=== PATIENT | male | born 1945 | race Caucasian/White ===

== ENCOUNTER 2020-03-25 10:25 | Inpatient (IN) | payer OTHER, SELFPAY ==
[2020-03-25] VITALS (9 sets, daily range): BP systolic 113–130; BP diastolic 37–82; PULSE 68–76; RESP 16–20; TEMP 36.7–37.1; O2SAT 94–100; BMI 27.3
--- NOTE | ~2020-03-25 | XR_ITS ---
EXAMINATION: XR chest 2V DATE: 03/28/2020 16:57 INDICATION: Shortness of breath. TECHNIQUE: Frontal and lateral views of the chest were obtained on 3 radiographs. COMPARISON: Chest single view at 03/25/2020, chest CT 11/24/2018 FINDINGS: There is volume loss in right hemithorax, likely from right upper lobectomy. 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 There is mild atelectasis in the lower lung zones. No pleural effusion or pneumothorax. The h eart size is normal. There is a right internal jugular port with tip in superior vena cava. There is a stent graft in abdominal aorta. IMPRESSION: 1. Mild atelectasis in the lower lung zones. Reviewed, dictated and finalized at location A.
--- NOTE | ~2020-03-25 | XR_ITS ---
XR chest 1V portable 03/25/2020 10:59 Indication: Cough and shortness of breath Procedure: AP portable chest Comparison: 11/24/2018 Findings: Patchy airspace disease right mid and lower lung. Portacatheter tip in the SVC. There is vo lume loss in the right lung with elevated right diaphragm. There are postsurgical changes at the righ t hilum, suggesting partial pneumonectomy. Impression: 1: Patchy right-sided airspace disease predominantly affecting the lower lobe. There is associated vo lume loss and elevation of the right diaphragm are differential diagnosis includes pneumonia, atelect asis and/or scarring. Reviewed, dictated and finalized at location A. Impression: 1: Patchy right-sided airspace disease predominantly affecting the lower lobe. There is associated volume loss and elevation of the right diaphragm are differ ential diagnosis includes pneumonia, atelectasis and/or scarring.
--- NOTE | 2020-03-25 10:26 | ECG_ITS ---
Measurements Intervals [place] Rate: 72 P: 38 NC: 193 QRS: 24 QRSD: 94 T: 62 QT: 423 QTc: 464 Interpretive Statements SINUS RHYTHM BORDERLINE ST ABNORMALITY- ANTEROLATERAL LEADS BORDERLINE ECG Electronically Signed On 03-25-2020 11:09:41 CDT by Calvin Lewis D.O.
--- NOTE | 2020-03-25 10:38 | ED.GENADULT ---
HPI - General Adult General Chief complaint: Shortness of Breath/Dyspnea Stated complaint: prod cough, sob Source: RN notes reviewed History of Present Illness HPI narrative: Patient presents emergency department from home for cough. Patient states he has had symptoms for approximately 5 days. Cough is productive of white sputum. States he has associated mild shortness of breath as well as fevers at home up to 101. Patient states he did have abdominal pain 3 days ago but that has resolved he denies any chest pain vomiting diarrhea or any other symptoms. Patient states he does have a history of previous lung cancer and gets weekly injections for his white blood cell count Related Data Home Medications Medication Instructions Recorded Confirmed albuterol sulfate 2 puff INHALATION QID 03/25/20 aspirin [Adult Low Dose Aspirin] 81 mg PO DAILY 03/25/20 carvedilol 12.5 mg PO BID 03/25/20 cholecalciferol (vitamin D3) 50 mcg PO DAILY 03/25/20 clopidogrel 75 mg PO DAILY 03/25/20 docusate sodium 100 mg PO BID 03/25/20 famotidine 20 mg PO DAILY 03/25/20 morphine 15 mg PO Q6H PRN 03/25/20 naloxone 1 spray INTRANASAL Q2-3M PRN 03/25/20 nitroglycerin 0.4 mg SUBLINGUAL Q5M PRN 03/25/20 potassium chloride 20 meq PO BID 03/25/20 silver sulfadiazine 1 applic TOPICAL DAILY 03/25/20 tamsulosin 0.4 mg PO HS 03/25/20 tbo-filgrastim mcg SUBCUT 03/25/20 tbo-filgrastim [Granix] mcg SUBCUT DAILY 03/25/20 Allergies Allergy/AdvReac Type Severity Reaction Status Date / Time gabapentin AdvReac Joint Pain Verified 03/25/20 10:37 pregabalin [From Lyrica] AdvReac Joint Pain Verified 03/25/20 10:37 ticagrelor [From Brilinta] AdvReac Muscle Pain Verified 03/25/20 10:38 Review of Systems Review of Systems: Narrative: Gen.: Reports fever Eyes: Denies eye pain or visual change ENT: Denies congestion Respiratory: See HPI CV: Denies chest pain or palpitations GI: Denies abdominal pain nausea, emesis or diarrhea Musculoskeletal: Denies back pain or muscle pain Neuro: Denies numbness, tingling, weakness or focal weakness Skin: Denies rash Except as documented, all other systems reviewed and negative [facility] Past Medical History Medical History (Updated 03/25/20 @ 13:58 by Mina Demarco DO) Lung cancer Social History Social History (Updated 03/25/20 @ 13:57 by Mina Demarco DO) Smoking status: Former smoker Gender identity (if verbalized by the patient): Male Exam Narrative: Exam Narrative: APPEARANCE: No acute distress, nontoxic, resting in bed EYES: EOMI HEENT: Normocephalic, atraumatic, oromucosa dry RESPIRATORY: No respiratory distress Clear to auscultation bilaterally with no rhonchi wheezing or rales. CARDIOVASCULAR: Regular rate and rhythm with grade 3 out of 6 systolic ejection murmur ABDOMINAL: Soft, nontender, nondistended, no rebound or guarding MUSCULOSKELETAl: Moves all extremities. No clubbing, cyanosis or edema. NEURO: Awake and alert. Following commands, speech normal, no focal deficits SKIN:: Warm, dry. No rashes lesions or abrasions PSYCHIATRIC: Normal affect/mood, Course Course Emergency Course: Discussed with Dr. Trevino presentation work-up. Agrees with admission at this time Discussed with patient and family results of workup and diagnosis. Discussed need for admission. Patient and family understand and agree to current treatment plan Vital Signs Vital signs: Vital Signs Temperature 98.0 F 03/25/20 10:25 Pulse Rate 74 03/25/20 10:25 Respiratory Rate 20 03/25/20 10:25 Blood Pressure 121/82 03/25/20 10:25 Pulse Oximetry 96 03/25/20 10:25 Temperature 98.0 F 03/25/20 10:25 Pulse Rate 69 03/25/20 13:18 Respiratory Rate 16 03/25/20 13:18 Blood Pressure 130/53 L 03/25/20 13:18 Pulse Oximetry 94 03/25/20 13:18 Medical Decision Making Vital Signs Vital Signs: Vital Signs Temperature 98.0 F 03/25/20 10:25 Pulse Rate 74 03/25/20 10:25 Respirator
[2020-03-25 10:59] LABS: Basophils Percent Auto 0.1 % (0.2-1.2); Eosinophils Percent Auto 0.1 % (0-4.4); Hematocrit 28.3 % (42.0-52.0); Hemoglobin 9.3 g/dL (14.0-18.0); Immature Granulocyte Absolute 0.88 K/mm3 (0.00-0.031); Immature Granulocyte Percent A 6.2 % (0-0.5); Lymphocytes Absolute Auto 1.02 K/mm3 (0.9-3.2); Lymphocytes Percent Auto 7.2 % (18.3-44.2); Mean Corpuscular HGB Conc 32.9 g/dl (32-36); Mean Corpuscular Hemoglobin 29.4 pg (26-34); Mean Corpuscular Volume 89.6 fl (80-100); Mean Platelet Volume 9.3 fl (7.4-10.4); Monocytes Absolute Auto 1.4 K/mm3 (0.1-0.6); Monocytes Percent Auto 9.7 % (2.6-8.5); Neutrophils Absolute Auto 10.9 K/mm3 (1.3-6.7); Neutrophils Percent Auto 76.7 % (45.5-73.1); Platelet Count Result 210 k/mm3 (150-375); Red Blood Count 3.16 M/mm3 (4.6-6.20); Red Cell Distribution Width 18.5 % (11.5-14.5); White Blood Count 14.2 K/mm3 (4.5-10.0)
[2020-03-25 11:08] LABS: Prothrombin Time 13.3 Seconds (11.1-14.7)
[2020-03-25 11:12] LABS: Lactic Acid Reflex 1.7 mmol/L (0.7-2.1)
[2020-03-25 11:14] LABS: Alanine Aminotransferase 43 U/L (4-50); Albumin Level 3.7 g/dL (3.5-5.1); Alkaline Phosphatase 150 U/L (38-126); Aspartate Amino Transferase 23 U/L (17-59); Bilirubin,Total 0.7 mg/dL (0.2-1.3); Blood Urea Nitrogen 11 mg/dL (9-20); Calcium 8.9 mg/dL (8.4-10.2); Carbon Dioxide 28 mmol/L (22-30); Chloride 95 mmol/L (98-107); Estimated CRCL calculation 68 ml/min; Estimated Glomerular Filt Rate > 60; Glucose 135 mg/dL (75-110); Potassium 2.8 mmol/L (3.4-5.0); Sodium 131 mmol/L (137-145)
[2020-03-25] MEDS: POTASSIUM CHLORIDE 20 MEQ TABLET 40 MEQ PO (11:34)
[2020-03-25 11:40] LABS: Magnesium 1.9 mg/dL (1.6-2.3)
--- NOTE | 2020-03-25 13:18 | PC.NURSE ---
pt refuses straight cath for ua. only voided few drops
--- NOTE | 2020-03-25 14:09 | ADMGEN ---
This patient, Tray Cespedes, was admitted to [facility] S[facility] Room 331-01. Patient/family oriented to hospital policies and general routines including ID bracelet, bed and alarms, visiting hours, pain management, procedures, bathroom and other care routines, personal items, smoking policy, room service/diet, and visiting hours. Valuables list has been completed. Information on how to activate the Rapid Response Team has been discussed. Patient/Family are encouraged to report perceived risks to care and to ask questions if they do not understand what they are told or what they should do.
--- NOTE | 2020-03-25 19:48 | PM.IMHP ---
H&P: HPI History of Present Illness Chief complaint: Community acquired pneumonia/hypokalemia Narrative: This is a 75 year old male with known history of lung cancer on chemotherapy who presented to the hospital with symptoms of a productive cough, fever, shortness of breath and diarrhea over the past 5 days. The patient believes his symptoms started Wednesday night and he attributes it to eating some bad food. Since then he has also been feeling fatigued and sick. He denies any abdominal pain, dysuria, hematuria, diarrhea, nausea, vomiting, chest pain, headache, lower extremity swelling, redness or pain. The patient has not required any supplemental oxygen and is nontoxic appearing. He was recently checked for COVID-19 three weeks ago and tested negative. The patient was found to have patchy right-sided airspace disease predominantly affecting the lower lobe on CXR. Routine labs demonstrated leukocytosis and hypokalemia. The patient was started on IV antibiotics and was tested again for COVID-19 virus. No other complaints. Review of Systems Review of Systems: All systems reviewed & are unremarkable except as noted in HPI and below PMFSH Past Medical History Medical History (Updated 03/27/20 @ 03:55 by Yordy Little MD) CAD (coronary artery disease) Lung cancer Myocardial infarction Surgical History Surgical History (Updated 03/25/20 @ 20:03 by Yordy Little MD) History of coronary artery stent placement Social History Social History Smoking status: Former smoker Alcohol intake: current Drinks per week: 7 Substance use: never Gender identity (if verbalized by the patient): Male Spiritual care concerns: No Meds Home Medications and Allergies Home Medications Medication Instructions Recorded Confirmed Type albuterol sulfate 2 puff INHALATION QID 03/25/20 03/25/20 History aspirin [Adult Low Dose Aspirin] 81 mg PO DAILY 03/25/20 03/25/20 History carvedilol 12.5 mg PO BID 03/25/20 03/25/20 History cholecalciferol (vitamin D3) 50 mcg PO DAILY 03/25/20 03/25/20 History clopidogrel 75 mg PO DAILY 03/25/20 03/25/20 History docusate sodium 100 mg PO BID 03/25/20 03/25/20 History famotidine 20 mg PO DAILY 03/25/20 03/25/20 History morphine 15 mg PO Q6H PRN 03/25/20 03/25/20 History naloxone 1 spray INTRANASAL Q2-3M PRN 03/25/20 03/25/20 History nitroglycerin 0.4 mg SUBLINGUAL Q5M PRN 03/25/20 03/25/20 History potassium chloride 20 meq PO BID 03/25/20 03/25/20 History silver sulfadiazine 1 applic TOPICAL DAILY 03/25/20 03/25/20 History tamsulosin 0.4 mg PO HS 03/25/20 03/25/20 History tbo-filgrastim 480 mcg SUBCUT DAILY 03/25/20 03/25/20 History Allergies Allergy/AdvReac Type Severity Reaction Status Date / Time gabapentin AdvReac Joint Pain Verified 03/25/20 10:37 pregabalin [From Lyrica] AdvReac Joint Pain Verified 03/25/20 10:37 ticagrelor [From Brilinta] AdvReac Muscle Pain Verified 03/25/20 10:38 Vital Signs Vital Signs - 24 hr 03/25/20 10:25 03/25/20 10:33 03/25/20 13:18 Temperature 36.7 C Pulse Rate 74 69 Respiratory Rate 20 16 Blood Pressure 121/82 130/53 L Pulse Oximetry 96 96 94 03/25/20 14:01 03/25/20 16:00 Temperature Pulse Rate 68 70 Respiratory Rate 20 Blood Pressure 122/53 L Pulse Oximetry 96 Exam Const: General: cooperative, no acute distress, alert and awake Nutritional Appearance: well nourished Orientation/consciousness: patient oriented x3 HENMT: Head: normal to inspection General nose exam: Normal external nose present Face and sinus: normal facial exam Mouth: Yes Normal oral and palatal mucosa present and Yes oropharynx normal Eyes: Pupils: Equal, round and reactive pupils present EOM: EOMs intact bilaterally Neck: Neck: supple and no JVD Thyroid: thyroid normal Lymphatic: lymphadenopathy not noted Resp: Effort & Inspection: normal respiratory effort Auscultation: clear to aus
[2020-03-25 20:43] LABS: Blood Urea Nitrogen 9 mg/dL (9-20); Calcium 8.4 mg/dL (8.4-10.2); Carbon Dioxide 28 mmol/L (22-30); Chloride 96 mmol/L (98-107); Estimated CRCL calculation 62 ml/min; Estimated Glomerular Filt Rate > 60; Glucose 99 mg/dL (75-110); Potassium 3.1 mmol/L (3.4-5.0); Sodium 130 mmol/L (137-145)
[2020-03-25] MEDS: MORPHINE SULFATE 15 MG TABCR PO (21:10)
[2020-03-25] MEDS: TAMSULOSIN HCL 0.4 MG CAPSULE PO (21:10)
[2020-03-25] MEDS: ALBUTEROL SULFATE (*SP) AEROSOL 1 PUFF 2 PUFF INHALATION (21:33)
[2020-03-26] VITALS (14 sets, daily range): BP systolic 105–118; BP diastolic 42–55; PULSE 68–82; RESP 18–20; TEMP 36.3–36.9; O2SAT 93–98; BMI 27.3
[2020-03-26] MEDS: MORPHINE SULFATE 15 MG TABCR PO ×4 (04:24→21:39)
[2020-03-26 06:32] LABS: Basophils Absolute Auto 0.1 K/mm3 (0.0-0.1); Basophils Percent Auto 0.3 % (0.2-1.2); Eosinophils Percent Auto 0.2 % (0-4.4); Hematocrit 26.8 % (42.0-52.0); Hemoglobin 8.7 g/dL (14.0-18.0); Immature Granulocyte Absolute 0.81 K/mm3 (0.00-0.031); Immature Granulocyte Percent A 4.6 % (0-0.5); Lymphocytes Absolute Auto 1.13 K/mm3 (0.9-3.2); Lymphocytes Percent Auto 6.5 % (18.3-44.2); Mean Corpuscular HGB Conc 32.5 g/dl (32-36); Mean Corpuscular Hemoglobin 29.2 pg (26-34); Mean Corpuscular Volume 89.9 fl (80-100); Mean Platelet Volume 8.7 fl (7.4-10.4); Monocytes Absolute Auto 1.1 K/mm3 (0.1-0.6); Monocytes Percent Auto 6.4 % (2.6-8.5); Neutrophils Absolute Auto 14.3 K/mm3 (1.3-6.7); Platelet Count Result 197 k/mm3 (150-375); Red Blood Count 2.98 M/mm3 (4.6-6.20); Red Cell Distribution Width 18.8 % (11.5-14.5); White Blood Count 17.4 K/mm3 (4.5-10.0)
[2020-03-26 06:45] LABS: Blood Urea Nitrogen 8 mg/dL (9-20); Calcium 8.7 mg/dL (8.4-10.2); Carbon Dioxide 27 mmol/L (22-30); Chloride 97 mmol/L (98-107); Estimated CRCL calculation 68 ml/min; Estimated Glomerular Filt Rate > 60; Glucose 162 mg/dL (75-110); Potassium 3.1 mmol/L (3.4-5.0); Sodium 132 mmol/L (137-145)
[2020-03-26] MEDS: FAMOTIDINE 20 MG TABLET PO (08:54)
[2020-03-26] MEDS: ALBUTEROL SULFATE (*SP) AEROSOL 1 PUFF 2 PUFF INHALATION ×4 (08:54→19:37)
[2020-03-26] MEDS: ASPIRIN 81 MG ENTERIC TABLET PO (08:54)
[2020-03-26] MEDS: DOCUSATE SODIUM 100 MG CAPSULE PO ×2 (08:54→21:38)
[2020-03-26] MEDS: POTASSIUM CHLORIDE 20 MEQ TABLET 40 MEQ PO (08:54)
[2020-03-26] MEDS: CLOPIDOGREL BISULFATE 75 MG TABLET PO (08:54)
[2020-03-26] MEDS: carvediloL 25 MG TABLET 12.5 MG PO ×2 (08:55→21:39)
[2020-03-26] MEDS: CHOLECALCIFEROL 1,000 UNIT TABLET 2000 UNITS PO (08:55)
[2020-03-26] MEDS: SILVER SULFADIAZINE 1% CR 400 GM JAR (*BKC) 1 APPLIC TOPICAL (08:56)
[2020-03-26 09:59] LABS: Add Urine Microscopic? NO; Appearance Urine Clear (Clear); Bilirubin Urine Negative (Negative); Blood Urine Negative (Negative); Color Urine Yellow (Yellow); Glucose Urine UA Negative (Negative); Ketones Urine Negative (Negative); Leukocyte Esterase Ur Negative LEU/UL (Negative); Nitrate Urine Negative (Negative); Protein Urine Negative (Negative); Specific Grav Ur 1.011 (1.001-1.035); Urobilinogen Urine Negative mg/dL (<2.0)
--- NOTE | 2020-03-26 10:38 | PM.IMPN ---
Progress Note: A&P Assessment and Plan (1) Community acquired pneumonia: Qualifiers: Laterality: left Lung location: lower lobe of lung Qualified Code(s): J18.9 - Pneumonia, unspecified organism Code(s): J18.9 - Pneumonia, unspecified organism Status: Acute Assessment and Plan: Patient presented with shortness of breath, dry cough, and fever. CXR demonstrates patchy right-sided airspace disease predominantly affecting the lower lobe with associated volume loss and elevation of right diaphragm. Patient has been afebrile since presentation. WBC elevated at 17.4. He is maintaining adequate oxygenation on room air. Continue azithromycin and ceftriaxone Pneumococcal and legionella urine antigen has been ordered Blood culture and sputum cultures are pending Continue analgesics and antipyretics Begin guaifenesin to mobilize secretions Begin albuterol inhaler as needed Supplemental oxygen as needed to maintain oxygen saturation 92% above (2) Suspected COVID-19 virus infection: Code(s): Z20.828 - Contact with and (suspected) exposure to other viral communicable diseases Status: Acute Assessment and Plan: Given clinical picture, patient was swabbed for COVID-19. He denies sick contacts or recent travel. He tested negative for COVID-19 approximately 3 weeks ago. Continue isolation precautions Await results of COVID-19 test Continue supportive care as above (3) Acute hypokalemia: Code(s): E87.6 - Hypokalemia Status: Acute Assessment and Plan: Potassium was low at presentation and was repleted. Likely secondary to diarrhea. Today, potassium was low at 3.1. Replace potassium Continue to monitor closely (4) Lung cancer: Qualifiers: Laterality: right Lung location: unspecified part of lung Qualified Code(s): C34.91 - Malignant neoplasm of unspecified part of right bronchus or lung Code(s): C34.90 - Malignant neoplasm of unspecified part of unspecified bronchus or lung Status: Acute Assessment and Plan: Patient has known lung cancer of the right lung and is s/p partial right upper and lower lobe removal and is now maintained on chemotherapy which he receives the [facility] in [place]. He is scheduled for next chemotherapy appointment on 04/02/2020 (5) Anemia: Qualifiers: Anemia type: unspecified type Qualified Code(s): D64.9 - Anemia, unspecified Code(s): D64.9 - Anemia, unspecified Status: Acute Assessment and Plan: Patient demonstrating normocytic anemia. No prior labs for review of baseline. Today, hemoglobin is 8.7 and hematocrit is 26.8. He denies bleeding. Vitals are stable. Obtain iron, B12, and folate panel Continue to monitor H&H (6) CAD (coronary artery disease): Qualifiers: Associated angina: without angina Coronary Disease-Associated Artery/Lesion type: unspecified vessel or lesion type [place] vs. transplanted heart: [place] heart Qualified Code(s): I25.10 - Atherosclerotic heart disease of [place] coronary artery without angina pectoris Code(s): I25.10 - Atherosclerotic heart disease of [place] coronary artery without angina pectoris Status: Acute Assessment and Plan: Stable at this time. Continue aspirin, Plavix, and Coreg Subjective Date/time seen: 03/26/20 10:38 Interval history: Date of service: 03/26/2020 He reports he is feeling about the same today. His biggest concern at this time is his cough. He reports a dry cough but feels that he has sputum to cough up which he cannot. He feels his shortness of breath has been stable, possibly improved. He has not been ambulating but is able to breathe well at rest and when lying supine. He feels fatigued. He denies subjective fevers or chills. He denies headache. He endorse previous episodes of nausea and vomiting but denies today. He is urinating regularly withou
[2020-03-26 14:41] LABS: SARS-CoV-2 RNA PCR Negative
[2020-03-26 14:49] LABS: Potassium 3.4 mmol/L (3.4-5.0)
[2020-03-26] MEDS: SACCHAROMYCES BOULARDII 250 MG CAPSULE PO (16:30)
[2020-03-26] MEDS: TAMSULOSIN HCL 0.4 MG CAPSULE PO (21:38)
[2020-03-27] VITALS (16 sets, daily range): BP systolic 107–126; BP diastolic 42–58; PULSE 66–82; RESP 18–20; TEMP 36.4–36.9; O2SAT 94–98
[2020-03-27] MEDS: MORPHINE SULFATE 15 MG TABCR PO ×4 (02:59→22:18)
[2020-03-27 06:41] LABS: Basophils Absolute Auto 0.1 K/mm3 (0.0-0.1); Basophils Percent Auto 0.6 % (0.2-1.2); Eosinophils Percent Auto 0.5 % (0-4.4); Hematocrit 24.5 % (42.0-52.0); Hemoglobin 7.8 g/dL (14.0-18.0); Immature Granulocyte Absolute 0.47 K/mm3 (0.00-0.031); Lymphocytes Absolute Auto 1.17 K/mm3 (0.9-3.2); Lymphocytes Percent Auto 15.1 % (18.3-44.2); Mean Corpuscular HGB Conc 31.8 g/dl (32-36); Mean Corpuscular Hemoglobin 28.9 pg (26-34); Mean Corpuscular Volume 90.7 fl (80-100); Mean Platelet Volume 9.2 fl (7.4-10.4); Monocytes Absolute Auto 0.9 K/mm3 (0.1-0.6); Monocytes Percent Auto 11.3 % (2.6-8.5); Neutrophils Absolute Auto 5.2 K/mm3 (1.3-6.7); Neutrophils Percent Auto 66.5 % (45.5-73.1); Platelet Count Result 187 k/mm3 (150-375); Red Cell Distribution Width 18.9 % (11.5-14.5); White Blood Count 7.8 K/mm3 (4.5-10.0)
[2020-03-27 07:17] LABS: Iron 50 ug/dL (49-181)
[2020-03-27 07:30] LABS: Percent Iron Saturation 25 % (20-50)
[2020-03-27 07:32] LABS: Ovalocytes 1+ (NORMAL); Platelet Estimate Adequate (Adequate); Stomatocytes 1+ (NORMAL)
[2020-03-27 07:54] LABS: Folic Acid 7.3 ng/mL (2.76->20)
[2020-03-27 08:42] LABS: Alanine Aminotransferase 28 U/L (4-50); Albumin Level 2.9 g/dL (3.5-5.1); Alkaline Phosphatase 109 U/L (38-126); Aspartate Amino Transferase 18 U/L (17-59); Bilirubin,Total 0.3 mg/dL (0.2-1.3); Blood Urea Nitrogen 7 mg/dL (9-20); Carbon Dioxide 27 mmol/L (22-30); Chloride 99 mmol/L (98-107); Estimated CRCL calculation 68 ml/min; Estimated Glomerular Filt Rate > 60; Glucose 100 mg/dL (75-110); Potassium 3.3 mmol/L (3.4-5.0); Sodium 132 mmol/L (137-145)
[2020-03-27] MEDS: ALBUTEROL SULFATE (*SP) AEROSOL 1 PUFF 2 PUFF INHALATION (08:53)
[2020-03-27] MEDS: ASPIRIN 81 MG ENTERIC TABLET PO (08:59)
[2020-03-27] MEDS: CHOLECALCIFEROL 1,000 UNIT TABLET 2000 UNITS PO (08:59)
[2020-03-27] MEDS: carvediloL 25 MG TABLET 12.5 MG PO ×2 (08:59→20:19)
[2020-03-27] MEDS: FAMOTIDINE 20 MG TABLET PO (09:00)
[2020-03-27] MEDS: SACCHAROMYCES BOULARDII 250 MG CAPSULE PO ×2 (09:00→16:03)
[2020-03-27] MEDS: DOCUSATE SODIUM 100 MG CAPSULE PO ×2 (09:00→20:19)
[2020-03-27] MEDS: CLOPIDOGREL BISULFATE 75 MG TABLET PO (09:00)
[2020-03-27] MEDS: SILVER SULFADIAZINE 1% CR 400 GM JAR (*BKC) 1 APPLIC TOPICAL (09:01)
--- NOTE | 2020-03-27 09:50 | PM.IMPN ---
Progress Note: A&P Assessment and Plan (1) Community acquired pneumonia: Qualifiers: Laterality: left Lung location: lower lobe of lung Qualified Code(s): J18.9 - Pneumonia, unspecified organism Code(s): J18.9 - Pneumonia, unspecified organism Status: Acute Assessment and Plan: Patient presented with shortness of breath, dry cough, and fever. CXR demonstrates patchy right-sided airspace disease predominantly affecting the lower lobe with associated volume loss and elevation of right diaphragm. Patient has been afebrile since presentation. Leukocytosis has resolved. He is maintaining adequate oxygenation on room air. Continue azithromycin and ceftriaxone Begin gentle IV fluids as patient will not drink water and appears mildly dehydrated Pneumococcal and legionella urine antigen pending Preliminary blood cultures with NGTD and preliminary sputum culture has few WBC and many mixed bacterial royer Continue supportive care with analgesics, antipyretics, guaifenesin, and albuterol as needed. Will change to nebulized albuterol and will add PEP therapy with Cornet device to mobilize secretions. Supplemental oxygen as needed to maintain oxygen saturation 92% above (2) Acute hypokalemia: Code(s): E87.6 - Hypokalemia Status: Acute Assessment and Plan: Potassium was low at presentation and was repleted. Likely secondary to diarrhea. Today, potassium is 3.3 Replace potassium Continue to monitor closely (3) Lung cancer: Qualifiers: Laterality: right Lung location: unspecified part of lung Qualified Code(s): C34.91 - Malignant neoplasm of unspecified part of right bronchus or lung Code(s): C34.90 - Malignant neoplasm of unspecified part of unspecified bronchus or lung Status: Chronic Assessment and Plan: Patient has known lung cancer of the right lung and is s/p partial right upper and lower lobe removal and is now maintained on chemotherapy which he receives the [facility] in [place]. He is scheduled for next chemotherapy appointment on 04/02/2020 (4) Anemia: Qualifiers: Anemia type: unspecified type Qualified Code(s): D64.9 - Anemia, unspecified Code(s): D64.9 - Anemia, unspecified Status: Chronic Assessment and Plan: Patient demonstrating normocytic anemia. No prior labs for review of baseline. Today, hemoglobin is 7.8 and hematocrit is 24.5. He denies bleeding. Vitals are stable. Iron panel is consistent with anemia of chronic disease. B12 and folate wnl. Continue to monitor H&H and transfuse as needed (5) Gait instability: Code(s): R26.81 - Unsteadiness on feet Status: Acute Assessment and Plan: Patient reports recent mechanical fall approximately 1 week ago. He has recently started using a walker as he feels he has become more weak and unsteady, probably due to deconditioning. Continue fall precautions PT and OT have been ordered and recommendations are appreciated. (6) CAD (coronary artery disease): Qualifiers: Associated angina: without angina Coronary Disease-Associated Artery/Lesion type: unspecified vessel or lesion type [place] vs. transplanted heart: [place] heart Qualified Code(s): I25.10 - Atherosclerotic heart disease of [place] coronary artery without angina pectoris Code(s): I25.10 - Atherosclerotic heart disease of [place] coronary artery without angina pectoris Status: Chronic Assessment and Plan: Stable at this time. Continue aspirin, Plavix, and Coreg (7) COVID-19 ruled out by laboratory testing: Code(s): Z03.818 - Encounter for observation for suspected exposure to other biological agents ruled out Status: Acute Assessment and Plan: He denies sick contacts or recent travel. He tested negative for COVID-19 approximately 3 weeks ago. Given clinical picture, patient was swabbed for COVID-19 in ED. Catrina
[2020-03-27] MEDS: POTASSIUM CHLORIDE 20 MEQ TABLET 40 MEQ PO (11:15)
[2020-03-27] MEDS: SODIUM CHLORIDE 0.9% IV 1,000 ML 70 ML IV CONT (11:16)
[2020-03-27] MEDS: ALBUTEROL SULFATE NEB 2.5 MG/0.5 ML INH INHALATION ×2 (14:38→20:37)
--- NOTE | 2020-03-27 14:38 | PCOTNOTE ---
OT evaluation attempted. Patient having treatment done. Will attempt at later time.
[2020-03-27] MEDS: TAMSULOSIN HCL 0.4 MG CAPSULE PO (20:19)
[2020-03-28] VITALS (16 sets, daily range): BP systolic 110–129; BP diastolic 37–63; PULSE 62–84; RESP 18–20; TEMP 36.6–37.3; O2SAT 94–100
--- NOTE | 2020-03-28 00:15 | ECG_ITS ---
Measurements Intervals [place] Rate: 68 P: 13 MT: 170 QRS: 14 QRSD: 88 T: 48 QT: 418 QTc: 446 Interpretive Statements SINUS RHYTHM NORMAL ECG Electronically Signed On 03-28-2020 7:07:32 CDT by Calvin Lewis D.O.
[2020-03-28 01:53] LABS: Troponin I < 0.012 ng/mL (0.000-0.034)
[2020-03-28] MEDS: ALBUTEROL SULFATE NEB 2.5 MG/0.5 ML INH INHALATION ×4 (02:07→20:03)
[2020-03-28] MEDS: MORPHINE SULFATE 15 MG TABCR PO ×4 (04:09→21:33)
[2020-03-28 06:11] LABS: Basophils Percent Auto 0.7 % (0.2-1.2); Hematocrit 24.2 % (42.0-52.0); Hemoglobin 7.7 g/dL (14.0-18.0); Immature Granulocyte Absolute 0.27 K/mm3 (0.00-0.031); Immature Granulocyte Percent A 6.4 % (0-0.5); Lymphocytes Absolute Auto 0.97 K/mm3 (0.9-3.2); Lymphocytes Percent Auto 23.1 % (18.3-44.2); Mean Corpuscular HGB Conc 31.8 g/dl (32-36); Mean Corpuscular Hemoglobin 28.8 pg (26-34); Mean Corpuscular Volume 90.6 fl (80-100); Mean Platelet Volume 8.5 fl (7.4-10.4); Monocytes Absolute Auto 0.6 K/mm3 (0.1-0.6); Monocytes Percent Auto 13.8 % (2.6-8.5); Neutrophils Absolute Auto 2.3 K/mm3 (1.3-6.7); Platelet Count Result 164 k/mm3 (150-375); Red Blood Count 2.67 M/mm3 (4.6-6.20); Red Cell Distribution Width 18.6 % (11.5-14.5); White Blood Count 4.2 K/mm3 (4.5-10.0)
[2020-03-28 06:29] LABS: Alanine Aminotransferase 21 U/L (4-50); Alkaline Phosphatase 95 U/L (38-126); Aspartate Amino Transferase 16 U/L (17-59); Bilirubin,Total 0.4 mg/dL (0.2-1.3); Blood Urea Nitrogen 5 mg/dL (9-20); Calcium 8.3 mg/dL (8.4-10.2); Carbon Dioxide 29 mmol/L (22-30); Chloride 100 mmol/L (98-107); Estimated CRCL calculation 76 ml/min; Estimated Glomerular Filt Rate > 60; Glucose 104 mg/dL (75-110); Potassium 3.9 mmol/L (3.4-5.0); Sodium 136 mmol/L (137-145)
[2020-03-28 07:01] LABS: Ovalocytes 1+ (NORMAL); Platelet Estimate Adequate (Adequate); Stomatocytes 2+ (NORMAL)
[2020-03-28] MEDS: FAMOTIDINE 20 MG TABLET PO (08:27)
[2020-03-28] MEDS: CLOPIDOGREL BISULFATE 75 MG TABLET PO (08:27)
[2020-03-28] MEDS: ASPIRIN 81 MG ENTERIC TABLET PO (08:27)
[2020-03-28] MEDS: CHOLECALCIFEROL 1,000 UNIT TABLET 2000 UNITS PO (08:27)
[2020-03-28] MEDS: carvediloL 25 MG TABLET 12.5 MG PO ×2 (08:27→21:32)
[2020-03-28] MEDS: SACCHAROMYCES BOULARDII 250 MG CAPSULE PO ×2 (08:27→17:54)
--- NOTE | 2020-03-28 10:17 | PM.IMPN ---
Progress Note: A&P Assessment and Plan (1) Community acquired pneumonia: Qualifiers: Laterality: left Lung location: lower lobe of lung Qualified Code(s): J18.9 - Pneumonia, unspecified organism Code(s): J18.9 - Pneumonia, unspecified organism Status: Acute Assessment and Plan: Patient presented with shortness of breath, dry cough, and fever. CXR demonstrates patchy right-sided airspace disease predominantly affecting the lower lobe with associated volume loss and elevation of right diaphragm. Patient has been afebrile since presentation. Leukocytosis has resolved. He is maintaining adequate oxygenation on room air. He does feel more SOB today and has slightly labored breathing. Continue azithromycin and ceftriaxone Repeat CXR Pneumococcal and legionella urine antigen pending Preliminary blood cultures with NGTD and preliminary sputum culture has few WBC and many mixed bacterial royer Continue supportive care with analgesics, antipyretics, guaifenesin, albuterol, and Cornet device Supplemental oxygen as needed to maintain oxygen saturation 92% above (2) Pleuritic chest pain: Code(s): R07.81 - Pleurodynia Status: Acute Assessment and Plan: Patient complains of pleuritic chest pain which is reproducible with cough or chest wall palpation. He had a right lung lobectomy in October, and he reports he has had some lingering right chest wall pain since that time. He rates pain as 10/10 today, but reports he gets relief with his home morphine. He also noted improvement with lying on his right side and applying pressure to his chest. His discomfort increased overnight, therefore cardiac workup was pursued. Troponin was negative. EKG revealed normal sinus rhythm. Continue home pain control regimen of morphine 15 mg PO Q6H Supportive care with lidocaine patch, heat, or ice as needed. (3) Acute hypokalemia: Code(s): E87.6 - Hypokalemia Status: Acute Assessment and Plan: Potassium was low at presentation and was repleted. Likely secondary to diarrhea. Today, potassium is 3.9 Continue to monitor closely (4) Lung cancer: Qualifiers: Laterality: right Lung location: unspecified part of lung Qualified Code(s): C34.91 - Malignant neoplasm of unspecified part of right bronchus or lung Code(s): C34.90 - Malignant neoplasm of unspecified part of unspecified bronchus or lung Status: Chronic Assessment and Plan: Patient has known lung cancer of the right lung and is s/p partial right upper and lower lobe removal and is now maintained on chemotherapy which he receives at the [facility] in [place]. He is scheduled for next chemotherapy appointment on 04/02/2020 (5) Anemia: Qualifiers: Anemia type: unspecified type Qualified Code(s): D64.9 - Anemia, unspecified Code(s): D64.9 - Anemia, unspecified Status: Chronic Assessment and Plan: Patient demonstrating normocytic anemia. No prior labs for review of baseline. Today, hemoglobin is 7.8 and hematocrit is 24.5. He denies bleeding. Vitals are stable. Iron panel is consistent with anemia of chronic disease. B12 and folate wnl. Continue to monitor H&H and transfuse as needed (6) Gait instability: Code(s): R26.81 - Unsteadiness on feet Status: Acute Assessment and Plan: Patient reports recent mechanical fall approximately 1 week ago. He has recently started using a walker as he feels he has become more weak and unsteady, probably due to deconditioning. Continue fall precautions PT and OT have been ordered and recommendations are appreciated. (7) CAD (coronary artery disease): Qualifiers: Coronary Disease-Associated Artery/Lesion type: unspecified vessel or lesion type [place] vs. transplanted heart: [place] heart Associated angina: without angina Qualified Code(s): I25.10 - Atherosclerotic heart disease of
[2020-03-28] MEDS: LIDOCAINE 5% PATCH 1 PATCH TRANSDERM (12:13)
--- NOTE | 2020-03-28 15:25 | PCPTNOTE ---
The PT treatment was not completed today. Will continue per Plan of Care frequency and duration.
[2020-03-28] MEDS: TAMSULOSIN HCL 0.4 MG CAPSULE PO (21:33)
[2020-03-28] MEDS: DOCUSATE SODIUM 100 MG CAPSULE PO (21:33)
[2020-03-29] VITALS (14 sets, daily range): BP systolic 106–134; BP diastolic 41–76; PULSE 67–105; RESP 16–20; TEMP 36.6–37.1; O2SAT 95–100
[2020-03-29] MEDS: ALBUTEROL SULFATE NEB 2.5 MG/0.5 ML INH INHALATION ×4 (01:50→20:11)
[2020-03-29] MEDS: MORPHINE SULFATE 15 MG TABCR PO ×4 (04:11→22:01)
[2020-03-29 06:01] LABS: Eosinophils Percent Auto 0.8 % (0-4.4); Hematocrit 24.9 % (42.0-52.0); Hemoglobin 7.6 g/dL (14.0-18.0); Immature Granulocyte Absolute 0.15 K/mm3 (0.00-0.031); Immature Granulocyte Percent A 3.9 % (0-0.5); Lymphocytes Absolute Auto 1.03 K/mm3 (0.9-3.2); Lymphocytes Percent Auto 26.9 % (18.3-44.2); Mean Corpuscular HGB Conc 30.5 g/dl (32-36); Mean Corpuscular Hemoglobin 29.1 pg (26-34); Mean Corpuscular Volume 95.4 fl (80-100); Mean Platelet Volume 8.9 fl (7.4-10.4); Monocytes Absolute Auto 0.6 K/mm3 (0.1-0.6); Monocytes Percent Auto 15.4 % (2.6-8.5); Platelet Count Result 174 k/mm3 (150-375); Red Blood Count 2.61 M/mm3 (4.6-6.20); Red Cell Distribution Width 18.3 % (11.5-14.5); White Blood Count 3.8 K/mm3 (4.5-10.0)
[2020-03-29 06:04] LABS: Alanine Aminotransferase 18 U/L (4-50); Albumin Level 3.2 g/dL (3.5-5.1); Alkaline Phosphatase 92 U/L (38-126); Aspartate Amino Transferase 14 U/L (17-59); Bilirubin,Total 0.5 mg/dL (0.2-1.3); Blood Urea Nitrogen 5 mg/dL (9-20); Calcium 8.5 mg/dL (8.4-10.2); Carbon Dioxide 28 mmol/L (22-30); Chloride 100 mmol/L (98-107); Estimated CRCL calculation 76 ml/min; Estimated Glomerular Filt Rate > 60; Glucose 108 mg/dL (75-110); Potassium 3.9 mmol/L (3.4-5.0); Sodium 133 mmol/L (137-145)
[2020-03-29] MEDS: SACCHAROMYCES BOULARDII 250 MG CAPSULE PO ×2 (08:24→16:19)
[2020-03-29] MEDS: DOCUSATE SODIUM 100 MG CAPSULE PO ×2 (08:24→20:36)
[2020-03-29] MEDS: FAMOTIDINE 20 MG TABLET PO (08:25)
[2020-03-29] MEDS: CLOPIDOGREL BISULFATE 75 MG TABLET PO (08:25)
[2020-03-29] MEDS: carvediloL 25 MG TABLET 12.5 MG PO ×2 (08:25→20:36)
[2020-03-29] MEDS: ASPIRIN 81 MG ENTERIC TABLET PO (08:26)
[2020-03-29] MEDS: LIDOCAINE 5% PATCH 1 PATCH TRANSDERM (08:29)
[2020-03-29] MEDS: CHOLECALCIFEROL 1,000 UNIT TABLET 2000 UNITS PO (08:31)
--- NOTE | 2020-03-29 09:15 | PM.IMPN ---
Progress Note: A&P Assessment and Plan (1) Community acquired pneumonia: Qualifiers: Laterality: left Lung location: lower lobe of lung Qualified Code(s): J18.9 - Pneumonia, unspecified organism Code(s): J18.9 - Pneumonia, unspecified organism Status: Acute Assessment and Plan: CXR demonstrates patchy right-sided airspace disease predominantly affecting the lower lobe with associated volume loss and elevation of right diaphragm. Patient has been afebrile since presentation. Leukocytosis has resolved. He is maintaining adequate oxygenation on room air. Repeat CXR yesterday revealed mild atelectasis. Continue azithromycin and ceftriaxone. Initiated on 03/26/20 Pneumococcal and legionella urine antigen pending Preliminary blood cultures with NGTD and final sputum culture normal oropharyngeal oryer. Continue supportive care with analgesics, antipyretics, guaifenesin, albuterol, and Cornet device Supplemental oxygen as needed to maintain oxygen saturation 92% above Begin incentive spirometer (2) Pleuritic chest pain: Code(s): R07.81 - Pleurodynia Status: Acute Assessment and Plan: Patient complains of pleuritic chest pain which is reproducible with cough or chest wall palpation. He had a right lung lobectomy in October, and he reports he has had some lingering right chest wall pain since that time. His discomfort increased overnight on 03/27, therefore cardiac workup was pursued. Troponin was negative. EKG revealed normal sinus rhythm. He reports his pain has not been well controlled, however he does note improvement with morphine. Continue home pain control regimen of morphine 15 mg PO Q6H Maximize supportive therapy to achieve adequate pain control. Apply ice to area. Continue lidocaine patch. (3) Acute hypokalemia: Code(s): E87.6 - Hypokalemia Status: Acute Assessment and Plan: Potassium was low at presentation and was repleted. Likely secondary to diarrhea. Today, potassium is 3.9 Continue to monitor closely (4) Lung cancer: Qualifiers: Laterality: right Lung location: unspecified part of lung Qualified Code(s): C34.91 - Malignant neoplasm of unspecified part of right bronchus or lung Code(s): C34.90 - Malignant neoplasm of unspecified part of unspecified bronchus or lung Status: Chronic Assessment and Plan: Patient has known lung cancer of the right lung and is s/p partial right upper and lower lobe removal and is now maintained on chemotherapy which he receives at the [facility] in [place]. He is scheduled for next chemotherapy appointment on 04/02/2020 (5) Anemia: Qualifiers: Anemia type: unspecified type Qualified Code(s): D64.9 - Anemia, unspecified Code(s): D64.9 - Anemia, unspecified Status: Chronic Assessment and Plan: Patient has chronic, normocytic anemia. Today, hemoglobin is 7.6 and hematocrit is 24.9. He denies bleeding. Vitals are stable. Iron panel is consistent with anemia of chronic disease. B12 and folate wnl. Continue to monitor H&H and transfuse as needed (6) Gait instability: Code(s): R26.81 - Unsteadiness on feet Status: Acute Assessment and Plan: Patient reports recent mechanical fall approximately 1 week ago. He has recently started using a walker as he feels he has become more weak and unsteady, probably due to deconditioning. Continue fall precautions PT and OT have been ordered and recommendations are appreciated. (7) CAD (coronary artery disease): Qualifiers: Coronary Disease-Associated Artery/Lesion type: unspecified vessel or lesion type [place] vs. transplanted heart: [place] heart Associated angina: without angina Qualified Code(s): I25.10 - Atherosclerotic heart disease of [place] coronary artery without angina pectoris Code(s): I25.10 - Atherosclerotic heart disease of [place] coronary artery
--- NOTE | 2020-03-29 10:26 | PCOTNOTE ---
Attempted to see patient at this time, however patient declined.
--- NOTE | 2020-03-29 11:55 | PCNFU ---
Nutrition Follow-Up Complete: Inadequate oral intake R/T reduced appetite as evidence by unintended wt loss PO intake of 75% of meals and supplements to halt further wt loss Patient has met goal. No new goal. Pt current nutrition is Heart Healthy. Nutrition recommendation: Agree Last recorded weight is 91.7 kg. Bowel Motility:+BM 03/29 Labs Reviewed:BUN 5,Na 133,Alb 3.2 Meds Noted:Vit D, Coreg, Mucinex. Additional Notes: Spoke with patient today. He states to eating well:80-100% of intake noted. He does not like the diet supplement, that has been discontinued. He states, he would like a salt . We discussed the heart healthy diet today and why is on that diet. Patient Instruction attached. Monitoring: PO intake, wt, labs every five days
[2020-03-29 14:36] LABS: Pneumococcal Antigen Urine Not Detected (Not Detected)
[2020-03-29 18:19] LABS: Legionella pneumophila Ag Ur Not Detected (Not Detected)
[2020-03-29] MEDS: TAMSULOSIN HCL 0.4 MG CAPSULE PO (20:36)
[2020-03-30] VITALS (8 sets, daily range): BP systolic 109–117; BP diastolic 42–55; PULSE 68–76; RESP 16–18; TEMP 36.3–36.7; O2SAT 94–99
[2020-03-30] MEDS: ALBUTEROL SULFATE NEB 2.5 MG/0.5 ML INH INHALATION ×3 (02:10→13:25)
[2020-03-30] MEDS: MORPHINE SULFATE 15 MG TABCR PO ×2 (03:59→10:27)
[2020-03-30 07:44] LABS: Basophils Percent Auto 0.8 % (0.2-1.2); Eosinophils Percent Auto 0.5 % (0-4.4); Hematocrit 25.7 % (42.0-52.0); Hemoglobin 8.2 g/dL (14.0-18.0); Immature Granulocyte Absolute 0.11 K/mm3 (0.00-0.031); Lymphocytes Absolute Auto 1.01 K/mm3 (0.9-3.2); Lymphocytes Percent Auto 27.3 % (18.3-44.2); Mean Corpuscular HGB Conc 31.9 g/dl (32-36); Mean Corpuscular Hemoglobin 29.6 pg (26-34); Mean Corpuscular Volume 92.8 fl (80-100); Mean Platelet Volume 8.9 fl (7.4-10.4); Monocytes Absolute Auto 0.5 K/mm3 (0.1-0.6); Monocytes Percent Auto 13.5 % (2.6-8.5); Neutrophils Percent Auto 54.9 % (45.5-73.1); Platelet Count Result 192 k/mm3 (150-375); Red Blood Count 2.77 M/mm3 (4.6-6.20); Red Cell Distribution Width 17.9 % (11.5-14.5); White Blood Count 3.7 K/mm3 (4.5-10.0)
[2020-03-30 08:08] LABS: Alanine Aminotransferase 16 U/L (4-50); Albumin Level 3.4 g/dL (3.5-5.1); Alkaline Phosphatase 90 U/L (38-126); Aspartate Amino Transferase 14 U/L (17-59); Bilirubin,Total 0.6 mg/dL (0.2-1.3); Blood Urea Nitrogen 6 mg/dL (9-20); Carbon Dioxide 32 mmol/L (22-30); Chloride 99 mmol/L (98-107); Estimated CRCL calculation 68 ml/min; Estimated Glomerular Filt Rate > 60; Glucose 111 mg/dL (75-110); Potassium 4.6 mmol/L (3.4-5.0); Sodium 136 mmol/L (137-145)
[2020-03-30] MEDS: CLOPIDOGREL BISULFATE 75 MG TABLET PO (08:51)
[2020-03-30] MEDS: FAMOTIDINE 20 MG TABLET PO (08:52)
[2020-03-30] MEDS: SACCHAROMYCES BOULARDII 250 MG CAPSULE PO (08:52)
[2020-03-30] MEDS: CHOLECALCIFEROL 1,000 UNIT TABLET 2000 UNITS PO (08:52)
[2020-03-30] MEDS: carvediloL 25 MG TABLET 12.5 MG PO (08:52)
[2020-03-30] MEDS: ASPIRIN 81 MG ENTERIC TABLET PO (08:52)
[2020-03-30] MEDS: LIDOCAINE 5% PATCH 1 PATCH TRANSDERM (08:54)
--- NOTE | 2020-03-30 11:06 | PCOTNOTE ---
Attempted to see patient for skilled OT, however patient declined to participate in any functional ADL task, mobility, or exercises. Patient not seen for OT.
--- NOTE | 2020-03-30 12:45 | PM.DS ---
DS: Admitting Diagnosis Admitting Diagnosis Admitting Diagnosis: Pneumonia, unspecified organism DS: Discharge Diagnosis Discharge Diagnosis (1) Community acquired pneumonia: Qualifiers: Laterality: left Lung location: lower lobe of lung Qualified Code(s): J18.9 - Pneumonia, unspecified organism Code(s): J18.9 - Pneumonia, unspecified organism Status: Acute Assessment and Plan: Patient presented with productive cough, fever, and SOB. He remained afebrile during his stay. Leukocytosis resolved. He maintained adequate oxygenation on room air. He was treated with IV azithromycin for 5 days and IV Ceftriaxone. He will continue PO Cefdinir to complete a 7 day course. Preliminary blood cultures reveal NGTD and final cultures will be monitored. Final sputum culture demonstrated normal oropharyngeal royer. His cough improved. (2) Pleuritic chest pain: Code(s): R07.81 - Pleurodynia Status: Acute Assessment and Plan: Patient complained of pleuritic chest pain which was reproducible with cough or chest wall palpation. He had a right lung lobectomy in October, and he reports he has had some lingering right chest wall pain since that time. Given chest pain, cardiac workup was pursued with negative troponins and NSR EKG without ST changes. Pain improved with his home morphine regimen which he will continue. (3) Acute hypokalemia: Code(s): E87.6 - Hypokalemia Status: Acute Assessment and Plan: Potassium was low at presentation and was repleted. He will continue his home 20 mEq potassium chloride. (4) Lung cancer: Qualifiers: Laterality: right Lung location: unspecified part of lung Qualified Code(s): C34.91 - Malignant neoplasm of unspecified part of right bronchus or lung Code(s): C34.90 - Malignant neoplasm of unspecified part of unspecified bronchus or lung Status: Chronic Assessment and Plan: Patient has known lung cancer of the right lung and is s/p partial right upper and lower lobe removal and is now maintained on chemotherapy which he receives at the [facility] in [place]. He is scheduled for next chemotherapy appointment on 04/02/2020 (5) Anemia: Qualifiers: Anemia type: unspecified type Qualified Code(s): D64.9 - Anemia, unspecified Code(s): D64.9 - Anemia, unspecified Status: Chronic Assessment and Plan: Patient has chronic, normocytic anemia. Iron panel is consistent with anemia of chronic disease. B12 and folate wnl. H&H remained stable. (6) Gait instability: Code(s): R26.81 - Unsteadiness on feet Status: Acute Assessment and Plan: Patient reported recent mechanical fall approximately 1 week ago. He has recently started using a walker as he feels he has become more weak and unsteady, probably due to deconditioning. He was evaluated by PT and OT and felt to be safe to return home. Fall precautions were discussed at length. (7) CAD (coronary artery disease): Qualifiers: Associated angina: without angina Coronary Disease-Associated Artery/Lesion type: unspecified vessel or lesion type [place] vs. transplanted heart: [place] heart Qualified Code(s): I25.10 - Atherosclerotic heart disease of [place] coronary artery without angina pectoris Code(s): I25.10 - Atherosclerotic heart disease of [place] coronary artery without angina pectoris Status: Chronic Assessment and Plan: Remained stable. He will continue aspirin, Plavix, and Coreg (8) COVID-19 ruled out by laboratory testing: Code(s): Z03.818 - Encounter for observation for suspected exposure to other biological agents ruled out Status: Acute Assessment and Plan: He tested negative for COVID-19 approximately 3 weeks ago. Given clinical picture, a repeat test was performed at presentation. Informed of negative result on 03/26/20. DS: Summary Hospital Course Damari
--- NOTE | 2020-03-30 16:16 | PC.NURSE ---
Pt has been discharged from this hospital to home. Pt had IV removed, belongings checked, and discharge paperwork reviewed. Opportunity for questions was provided, and pt exhibited good understanding of discharge instructions. Pt was wheeled to the front door in a wheelchair, by staff.
== END 2020-03-30 16:05 | disposition home or self-care (01) | DRG 194 ==
LOC: ANHED 12:05 → ANH3MEDSUR 12:28
PROVIDERS: Family Medicine; Physician Assistant; Admitting Provider Hospitalist; Emergency Provider Emergency Medicine; Visit Provider Internal Medicine
DX: J18.9 Pneumonia, unspecified organism (principal); C34.91 Malignant neoplasm of unspecified part of right bronchus or lung; Z20.828 Contact with and (suspected) exposure to other viral communicable diseases; R07.81 Pleurodynia; E87.6 Hypokalemia; D63.8 Anemia in other chronic diseases classified elsewhere; I25.10 Atherosclerotic heart disease of native coronary artery without angina pectoris; I25.2 Old myocardial infarction; Z95.5 Presence of coronary angioplasty implant and graft; Z87.891 Personal history of nicotine dependence
CPT/HCPCS: 36415; 71045; 71046; 80048; 80053; 81003; 82607; 82728; 82746; 83540; 83550; 83605; 83735; 84132; 84484; 85025; 85610; 87040; 87070; 87205; 87449; 87635; 87899; 93005; 94640; 94667; 94668; 96365; 96366; 96367; 97110; 97161; 97165; 97530; 99285; A9270; C9803; G0378; J0456; J0696; J3480; J7030; U0003

== ENCOUNTER 2020-10-31 00:56 | Emergency (ER) | payer OTHER, SELFPAY ==
--- NOTE | ~2020-10-31 | XR_ITS ---
EXAMINATION: XR hip LT 2V w AP pelvis INDICATION: Left hip pain TECHNIQUE: AP view of the pelvis and three views of the left hip are obtained. COMPARISON: None available FINDINGS: There are changes of left total hip arthroplasty. There is a spiral fracture of the left fe mur surrounding the femoral component of the arthroplasty. No pelvic fracture is identified. 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 Calcified atherosclerosis is noted. An aortobiiliac stent graft i s seen. IMPRESSION: 1. Spiral fracture of the left femur surrounding femoral component of the hip arthroplasty. Reviewed, dictated and finalized at location [facility]. E SCHOOL TEACHER IMPRESSION: 1. Spiral fracture of the left femur surrounding femoral component of the hip a rthroplasty.
--- NOTE | ~2020-10-31 | XR_ITS ---
EXAMINATION: XR femur LT min 2V INDICATION: Left femur fracture, initial encounter TECHNIQUE: Two views of the left femur are obtained on three radiographs. COMPARISON: None available FINDINGS: There are changes of left total hip arthroplasty. There is a spiral fracture of the proxima l femur surrounding the femoral component of the arthroplasty. The distal fracture fragment is medial ly displaced by approximately 2.5 cm and posteriorly displaced approximately 2.8 cm. Calcified athero sclerosis is noted. Alignment at the knee appears to be maintained. No additional fracture is identif ied. IMPRESSION: 1. Spiral fracture of the proximal left femur surrounding the femoral component of the hip arthroplas ty. Reviewed, dictated and finalized at location [facility]. BOILER IMPRESSION: 1. Spiral fracture of the proximal left femur surrounding the femoral component of the hip arthroplasty.
[2020-10-31 00:58] VITALS: BP 103/67; PULSE 63; RESP 18; TEMP 36.6; O2SAT 97
--- NOTE | 2020-10-31 01:00 | ED.LOWEXIN ---
HPI - Extremity Injury (Lower) General Chief Complaint: Extremity Injury, Lower Stated Complaint: l hip pain History of Present Illness HPI Narrative: 75 yo male with multiple medical comorbidities presents to the ED for a hip injury. He was on a step stool changing a light bulb when he fell nto his left hip. He has severe pain and deformity to the hip. He has had 3 previous hip replacement surgeries on that side. The most recent was at [facility]. He also has a skin tear and swelling to the left elbow. Unsure it if hit his head. Related Data Home Medications Medication Instructions Recorded Confirmed albuterol sulfate 2 puff INHALATION QID 03/25/20 03/25/20 aspirin [Adult Low Dose Aspirin] 81 mg PO DAILY 03/25/20 03/25/20 carvedilol 12.5 mg PO BID 03/25/20 03/25/20 cholecalciferol (vitamin D3) 50 mcg PO DAILY 03/25/20 03/25/20 clopidogrel 75 mg PO DAILY 03/25/20 03/25/20 docusate sodium 100 mg PO BID 03/25/20 03/25/20 famotidine 20 mg PO DAILY 03/25/20 03/25/20 morphine 15 mg PO Q6H PRN 03/25/20 03/25/20 naloxone 1 spray INTRANASAL Q2-3M PRN 03/25/20 03/25/20 nitroglycerin 0.4 mg SUBLINGUAL Q5M PRN 03/25/20 03/25/20 potassium chloride 20 meq PO BID 03/25/20 03/25/20 silver sulfadiazine 1 applic TOPICAL DAILY 03/25/20 03/25/20 tamsulosin 0.4 mg PO HS 03/25/20 03/25/20 tbo-filgrastim 480 mcg SUBCUT DAILY 03/25/20 03/25/20 Allergies Allergy/AdvReac Type Severity Reaction Status Date / Time gabapentin AdvReac Joint Pain Verified 10/31/20 01:08 pregabalin [From Lyrica] AdvReac Joint Pain Verified 10/31/20 01:08 ticagrelor [From Brilinta] AdvReac Muscle Pain Verified 10/31/20 01:08 Review of Systems Review of Systems: All systems reviewed & are unremarkable except as noted in HPI and below Constitutional: Constitutional: Denies fever(s) Cardiovascular: Cardiovascular: Denies chest pain Respiratory: Respiratory: Denies dyspnea Gastrointestinal: Gastrointestinal: Denies nausea Musculoskeletal: Musculoskeletal: Reports back pain (Chronic) Neurologic: Denies confusion [facility] Past Medical History Medical History (Updated 10/31/20 @ 01:47 by Keith Gonzalez MD) Anemia CAD (coronary artery disease) Lung cancer Myocardial infarction Surgical History Surgical History (Updated 10/31/20 @ 01:43 by Keith Gonzalez MD) History of coronary artery stent placement History of hip replacement Social History Social History Smoking status: Former smoker Alcohol intake: current Drinks per week: 7 Substance use: never Gender identity (if verbalized by the patient): Male Spiritual care concerns: No Exam Const: General: no acute distress, alert and ill appearing Orientation/consciousness: patient oriented x3 HENMT: Head: normal to inspection Eyes: Pupils: Equal, round and reactive pupils present Resp: Effort & Inspection: normal respiratory effort Auscultation: clear to auscultation bilaterally Cardio: Rate: regular rate Rhythm: regular rhythm Other: 1+ right DP GI: GI Palp: Yes Soft to palpation and No Tenderness to palpation present (GI) Skin: General skin exam: pallor Neuro: General: patient oriented x3, moves all extremities and CN's II-XI intact bilaterally Speech: normal speech Extrem: Other: Left hip shortened and externally rotated. Course Vital Signs Vital signs: Vital Signs Temperature 36.6 C 10/31/20 00:58 Pulse Rate 63 10/31/20 00:58 Respiratory Rate 18 10/31/20 00:58 Blood Pressure 103/67 10/31/20 00:58 Pulse Oximetry 97 10/31/20 00:58 Temperature 36.6 C 10/31/20 00:58 Pulse Rate 63 10/31/20 00:58 Respiratory Rate 18 10/31/20 00:58 Blood Pressure 103/67 10/31/20 00:58 Pulse Oximetry 97 10/31/20 00:58 MDM - Extremity Injury (Lower) Imaging Data Attestation: I personally reviewed and interpreted this imaging study as follows: My impression: Periprosthetic femur fracture
[2020-10-31] MEDS: LORazepam INJ (*CRX) 2 MG/ML VIAL 1 MG IV PUSH (01:20)
--- NOTE | 2020-10-31 01:52 | PC.NURSE ---
Report called to ELIEL Helm at [facility]
[2020-10-31] MEDS: MORPHINE SULFATE (*CRX) 4 MG/ML INJ IV PUSH (02:17)
[2020-10-31 02:18] VITALS: BP 107/57; PULSE 61; RESP 21; O2SAT 99
== END 2020-10-31 02:30 | disposition short-term general hospital (02) ==
PROVIDERS: Emergency Provider Emergency Medicine
DX: S72.92XA Unspecified fracture of left femur, initial encounter for closed fracture (principal); M97.02XA Periprosthetic fracture around internal prosthetic left hip joint, initial encounter; Z96.642 Presence of left artificial hip joint; Z79.82 Long term (current) use of aspirin; I25.10 Atherosclerotic heart disease of native coronary artery without angina pectoris; I25.2 Old myocardial infarction; Z85.118 Personal history of other malignant neoplasm of bronchus and lung; Z86.2 Personal history of diseases of the blood and blood-forming organs and certain disorders involving the immune mechanism; Z95.1 Presence of aortocoronary bypass graft; Z87.891 Personal history of nicotine dependence; W17.89XA Other fall from one level to another, initial encounter
CPT/HCPCS: 73502; 73552; 96374; 96375; 99284; 99285; J2060; J2270

== ENCOUNTER 2020-11-12 07:13 | Outpatient (NON) | payer OTHER, SELFPAY ==
[2020-11-12 07:23] LABS: Basophils Absolute Auto 0.01 K/mm3 (0.00-0.10); Basophils Percent Auto 0.2 % (0.0-1.0); Eosinophils Absolute Auto 0.06 K/mm3 (0.02-0.50); Eosinophils Percent Auto 1.5 % (1.0-6.0); Hematocrit 30.9 % (37.0-46.0); Hemoglobin 9.7 g/dL (12.4-15.3); Immature Granulocyte Absolute 0.03 K/mm3 (0.00-0.00); Immature Granulocyte Percent A 0.7 % (0.0-0.0); Lymphocytes Absolute Auto 1.07 K/mm3 (1.10-4.50); Lymphocytes Percent Auto 26.6 % (18.0-42.0); Mean Corpuscular HGB Conc 31.4 g/dL (32.0-36.0); Mean Corpuscular Hemoglobin 30.1 pg (27.0-31.0); Mean Platelet Volume 9.3 fl (8.7-11.0); Monocytes Percent Auto 12.4 % (2.0-11.0); Neutrophils Absolute Auto 2.4 K/mm3 (1.7-7.2); Neutrophils Percent Auto 58.6 % (50.0-70.0); Platelet Count Result 200 K/mm3 (150-420); Red Blood Count 3.22 M/mm3 (4.70-6.10); Red Cell Distribution Width 15.1 % (11.6-14.4)
[2020-11-12 07:44] LABS: Albumin Level 3.1 g/dL (3.4-5.0); Alkaline Phosphatase 171 U/L (46-116); Anion Gap 8 mmol/L (8-16); Aspartate Amino Transferase 36 U/L (15-37); Bilirubin,Total 1.1 mg/dL (0.00-1.00); Blood Urea Nitrogen 12 mg/dL (7-18); Calcium 8.9 mg/dL (8.5-10.1); Carbon Dioxide 29 mmol/L (21-32); Chloride 102 mmol/L (98-108); Estimated Glomerular Filt Rate > 60; Glucose 98 mg/dL (70-99); Osmolality Calculated 287 mOsm/kg (285-295); Potassium 4.5 mmol/L (3.5-5.1); Sodium 139 mmol/L (136-145); Total Protein 6.3 g/dL (6.4-8.2)
[2020-11-12 07:59] LABS: Alanine Aminotransferase 16 U/L (16-63)
== END 2020-11-12 07:14 ==
PROVIDERS: Visit Provider Internal Medicine
DX: D64.9 Anemia, unspecified (principal); C34.90 Malignant neoplasm of unspecified part of unspecified bronchus or lung
CPT/HCPCS: 36415; 80053; 85025

== ENCOUNTER 2020-12-25 04:56 | Inpatient (IN) | payer MEDICARE, OTHER, SELFPAY ==
[2020-12-25] VITALS (26 sets, daily range): BP systolic 102–152; BP diastolic 49–78; PULSE 69–99; RESP 14–22; TEMP 35.8–36.7; O2SAT 78–100; BMI 25.7
--- NOTE | ~2020-12-25 | XR_ITS ---
EXAMINATION: XR chest 1V portable INDICATION: Proximal area and nausea TECHNIQUE: Portable AP chest at 0634 hours COMPARISON: 03/28/2020 FINDINGS: There is unchanged volume loss in the right hemithorax. A right internal jugular Port-A-Cat h ends with its tip in the distal superior vena cava. The heart size is normal. The lungs are free of acute opacities. Surgical clips at the right hilum are consistent with partial pneumonectomy. IMPRESSION: 1. No acute cardiopulmonary abnormality. Reviewed, dictated and finalized at location A. ARIAL MATHEMATICIAN
--- NOTE | 2020-12-25 05:02 | ED.GIBLEED ---
HPI - GI Bleed General Chief complaint: GI Bleed Stated complaint: blood in stool History of Present Illness HPI Narrative: 75 yo male w/ h/o lung cancer, CAD, htn presents to the ED for GI bleed. He had one bowel movement that was all bright red blood. He is nauseated, but has not vomitied and has no pain. He has a h/o chronic anemia. This is thought to be anemia of chronic disease. He is on aspirin and plavix. Related Data Home Medications Medication Instructions Recorded Confirmed albuterol sulfate 2 puff INHALATION QID 03/25/20 03/25/20 aspirin [Adult Low Dose Aspirin] 81 mg PO DAILY 03/25/20 03/25/20 carvedilol 12.5 mg PO BID 03/25/20 03/25/20 cholecalciferol (vitamin D3) 50 mcg PO DAILY 03/25/20 03/25/20 clopidogrel 75 mg PO DAILY 03/25/20 03/25/20 docusate sodium 100 mg PO BID 03/25/20 03/25/20 famotidine 20 mg PO DAILY 03/25/20 03/25/20 morphine 15 mg PO Q6H PRN 03/25/20 03/25/20 naloxone 1 spray INTRANASAL Q2-3M PRN 03/25/20 03/25/20 nitroglycerin 0.4 mg SUBLINGUAL Q5M PRN 03/25/20 03/25/20 potassium chloride 20 meq PO BID 03/25/20 03/25/20 silver sulfadiazine 1 applic TOPICAL DAILY 03/25/20 03/25/20 tamsulosin 0.4 mg PO HS 03/25/20 03/25/20 tbo-filgrastim 480 mcg SUBCUT DAILY 03/25/20 03/25/20 furosemide 20 mg PO DAILY 12/25/20 morphine 30 mg PO Q8H PRN 12/25/20 olodaterol INHALATION 12/25/20 Allergies Allergy/AdvReac Type Severity Reaction Status Date / Time gabapentin AdvReac Joint Pain Verified 12/25/20 05:07 pregabalin [From Lyrica] AdvReac Joint Pain Verified 12/25/20 05:07 ticagrelor [From Brilinta] AdvReac Muscle Pain Verified 12/25/20 05:07 Review of Systems Review of Systems: All systems reviewed & are unremarkable except as noted in HPI and below Constitutional: Constitutional: Denies chills, Denies fever(s) and Reports weakness Eyes: Eyes: Reports no additional eye complaints ENT: Reports dizziness Cardiovascular: Cardiovascular: Denies chest pain Respiratory: Respiratory: Reports dyspnea Gastrointestinal: Gastrointestinal: Denies abdominal pain, Reports nausea and Denies vomiting Genitourinary: Genitourinary: Reports no additional male genitourinary complaints Neurologic: Reports dizziness and Reports weakness [facility] Past Medical History Medical History (Updated 12/25/20 @ 07:15 by Keith Gonzalez MD) Anemia CAD (coronary artery disease) Lung cancer Myocardial infarction Surgical History Surgical History (Updated 10/31/20 @ 01:43 by Keith Gonzalez MD) History of coronary artery stent placement History of hip replacement Social History Social History Smoking status: Former smoker Alcohol intake: current Drinks per week: 7 Substance use: never Gender identity (if verbalized by the patient): Male Spiritual care concerns: No Exam Const: General: alert and ill appearing acutely and chronically Orientation/consciousness: patient oriented x3 HENMT: Mouth: Yes dry mucous membranes Eyes: Conjunctivae: conjunctivae normal (p) and conjunctival abnormality (pale) Pupils: Equal, round and reactive pupils present Neck: Neck: normal visual inspection Resp: Effort & Inspection: normal respiratory effort Auscultation: clear to auscultation bilaterally Cardio: Rate: regular rate Rhythm: regular rhythm GI: GI Palp: Yes Soft to palpation and No Tenderness to palpation present (GI) Skin: General skin exam: pallor Neuro: General: patient oriented x3 and moves all extremities Speech: normal speech Extrem: General: no edema Course Vital Signs Vital signs: Vital Signs Temperature 36.2 C L 12/25/20 04:57 Pulse Rate 87 12/25/20 04:57 Respiratory Rate 16 12/25/20 04:57 Blood Pressure 114/58 L 12/25/20 04:57 Pulse Oximetry 100 12/25/20 04:57 Temperature 36.2 C L 12/25/20 04:57 Pulse Rate 81 12/25/20 06:44 Respiratory Rate 14 12/25/20 06:44 Blood Pressure 116/7
--- NOTE | 2020-12-25 05:06 | ECG_ITS ---
Measurements Intervals [place] Rate: 85 P: 68 [place]: 160 QRS: 27 QRSD: 83 T: 81 QT: 396 QTc: 472 Interpretive Statements SINUS RHYTHM BORDERLINE ST-T WAVE ABNORMALITY- DIFFUSE LEADS BASELINE WANDER- I, AVF, V3-V4 BORDERLINE ECG Electronically Signed On 12-25-2020 7:01:45 COMPUTER NUMERICAL CONTROL MACHINIST by Calvin Lewis D.O.
[2020-12-25] MEDS: HEPARIN SOD FLUSH 500 UNITS/5 ML SYRINGE (05:22)
[2020-12-25 05:29] LABS: Basophils Percent Auto 0.2 % (0.2-1.2); Hemoglobin 8.2 g/dL (14.0-18.0); Immature Granulocyte Absolute 0.06 K/mm3 (0.00-0.031); Immature Granulocyte Percent A 1.2 % (0-0.5); Lymphocytes Percent Auto 20.3 % (18.3-44.2); Mean Corpuscular HGB Conc 32.8 g/dl (32-36); Mean Corpuscular Hemoglobin 29.1 pg (26-34); Mean Corpuscular Volume 88.7 fl (80-100); Mean Platelet Volume 9.6 fl (7.4-10.4); Monocytes Absolute Auto 0.6 K/mm3 (0.1-0.6); Monocytes Percent Auto 11.6 % (2.6-8.5); Neutrophils Absolute Auto 3.3 K/mm3 (1.3-6.7); Neutrophils Percent Auto 66.7 % (45.5-73.1); Platelet Count Result 219 k/mm3 (150-375); Red Blood Count 2.82 M/mm3 (4.6-6.20); Red Cell Distribution Width 14.7 % (11.5-14.5); White Blood Count 4.9 K/mm3 (4.5-10.0)
[2020-12-25 05:38] LABS: INR 1.1; Prothrombin Time 14.8 Seconds (11.1-14.7)
[2020-12-25 05:39] LABS: Partial Thromboplastin Time 41.2 SECONDS (22.3-36.8)
[2020-12-25 05:40] LABS: Alanine Aminotransferase 19 U/L (4-50); Albumin Level 3.7 g/dL (3.5-5.1); Alkaline Phosphatase 107 U/L (38-126); Anion Gap 13 mmol/L (8-16); Aspartate Amino Transferase 37 U/L (17-59); Blood Urea Nitrogen 48 mg/dL (9-20); Calcium 8.7 mg/dL (8.4-10.2); Carbon Dioxide 24 mmol/L (22-30); Chloride 97 mmol/L (98-107); Estimated CRCL calculation 30 ml/min; Estimated Glomerular Filt Rate 31; Glucose 163 mg/dL (75-110); Potassium 3.4 mmol/L (3.4-5.0); Sodium 134 mmol/L (137-145)
[2020-12-25] MEDS: ONDANSETRON INJ 4 MG/2 ML VIAL IV PUSH (06:03)
[2020-12-25] MEDS: SODIUM CHLORIDE 0.9% IV 1,000 ML 999 ML IV CONT (06:03)
[2020-12-25] MEDS: PANTOPRAZOLE SODIUM IV 40 MG VIAL IV PUSH ×2 (06:25→21:10)
[2020-12-25 07:14] LABS: Hematocrit 22.6 % (42.0-52.0); Hemoglobin 7.2 g/dL (14.0-18.0)
--- NOTE | 2020-12-25 08:00 | PC.NURSE ---
Patient unable to go upstairs to room 314 until AR receives all paperwork and ok's patient to be admitted to this hospital.
[2020-12-25 08:39] LABS: Add Urine Microscopic? NO; Appearance Urine Clear (Clear); Bilirubin Urine Negative (Negative); Blood Urine Negative (Negative); Color Urine Yellow (Yellow); Glucose Urine UA Negative (Negative); Ketones Urine Negative (Negative); Leukocyte Esterase Ur Negative LEU/UL (Negative); Nitrate Urine Negative (Negative); Protein Urine Negative (Negative); RBC Urine 0-2 /hpf (0-2); Specific Grav Ur 1.015 (1.001-1.035); Urobilinogen Urine Negative mg/dL (<2.0); WBC Urine 0-3 /hpf
[2020-12-25] MEDS: TUBING, BLOOD PLUM PUMP TUBING 1 EACH XX (09:20)
--- NOTE | 2020-12-25 11:08 | ADMGEN ---
This patient, Tray Cespedes, was admitted to 3 [facility] Surg Room 314-01 @ 1108 . Patient/family oriented to hospital policies and general routines including ID bracelet, bed and alarms, visiting hours, pain management, procedures, bathroom and other care routines, personal items, smoking policy, room service/diet, and visiting hours. Information on how to activate the Rapid Response Team has been discussed. Patient/Family are encouraged to report perceived risks to care and to ask questions if they do not understand what they are told or what they should do.
--- NOTE | 2020-12-25 13:27 | PC.NURSE ---
Home medications were obtained from medication list. Waiting air traffic control operator from patients daughter to verify.
--- NOTE | 2020-12-25 13:37 | PC.NURSE ---
Patients daughter Cassie returned phone call about medications. She stated the medication list we were given is accurate. Patients pharmacy also called and medication list verified.
--- NOTE | 2020-12-25 14:12 | WPDGICN ---
Assessment and Plan Assessment and plan (1) GI bleed: Code(s): K92.2 - Gastrointestinal hemorrhage, unspecified Status: Acute Assessment and Plan: admitted to floor and getting blood transfusion can not get a good history from him, will proceed with egd and colonoscopy tomorrow ? ulcer, diverticular bleed, avm's (2) Acute on chronic blood loss anemia: Code(s): D62 - Acute posthemorrhagic anemia Status: Acute Assessment and Plan: trend hb, scopes tomorrow medical treatment (3) Acute renal failure: Code(s): N17.9 - Acute kidney failure, unspecified Status: Acute Assessment and Plan: on fluids, by primary team (4) Acute encephalopathy: Code(s): G93.40 - Encephalopathy, unspecified Status: Acute Assessment and Plan: he is confused, continue to monitor (5) Lung cancer: Qualifiers: Laterality: right Lung location: unspecified part of lung Qualified Code(s): C34.91 - Malignant neoplasm of unspecified part of right bronchus or lung Code(s): C34.90 - Malignant neoplasm of unspecified part of unspecified bronchus or lung Status: Chronic (6) CAD (coronary artery disease): Qualifiers: Coronary Disease-Associated Artery/Lesion type: unspecified vessel or lesion type [place] vs. transplanted heart: [place] heart Associated angina: without angina Qualified Code(s): I25.10 - Atherosclerotic heart disease of [place] coronary artery without angina pectoris Code(s): I25.10 - Atherosclerotic heart disease of [place] coronary artery without angina pectoris Status: Chronic Assessment and Plan: apparently on plavix at home, on hold now GI Consult Note Consult date/time: 12/25/20 14:12 Reason for consult: gib, acute blood loss anemia, rectal bleeding HPI: Tray Cespedes is a 75 year old male with history of CAD and lung cancer s/p right upper and lower partial lobectomy and previous chemotherapy. Last hospitalization here last March because pneumonia, also has chronic anemia with mid 9's (I do not know if he had scopes)- he is confused and can not get history from him. He was brought here with new onset of bright red blood in rectum, also nausea. Hb mid 7's and now he is getting blood transfusion. Also had acute renal failure with creat 2 (at baseline normal). Review of Systems Constitutional: Constitutional: Reports weakness Eyes: Eyes: Reports no additional eye complaints ENT: Reports system reviewed and no additional complaints, except as documented Cardiovascular: Cardiovascular: Denies chest pain Respiratory: Respiratory: Reports no additional respiratory complaints Gastrointestinal: Gastrointestinal: Reports hematochezia Musculoskeletal: Musculoskeletal: Denies neck pain Integumentary/Breasts: Skin/Breast: Reports system reviewed and no additional complaints, except as docu Psychiatric: Psychiatric: Reports confusion [facility] Past Medical History Medical History (Updated 12/25/20 @ 15:53 by David Jeronimo MD) Acute encephalopathy Acute on chronic blood loss anemia Acute renal failure Anemia CAD (coronary artery disease) Lung cancer Myocardial infarction Surgical History Surgical History (Updated 10/31/20 @ 01:43 by Keith Gonzalez MD) History of coronary artery stent placement History of hip replacement Family History Family History (Updated 12/25/20 @ 11:29 by Nai Goode RN) Father Cancer Sibling Mental health problem Sibling Mental health problem Social History Social History Smoking packs per day: 1.5 Smoking cigarettes per day: 30.0 Years smoked: 45 Smoking pack-years: 67.50 Smoking status: Former smoker Tobacco type: cigarettes Alcohol intake: former Drinks per week: 12 Substance use: current Substance use type: other Other substance usage details: 16 morphine tab
--- NOTE | 2020-12-25 16:28 | PM.IMHP ---
H&P: HPI History of Present Illness Date/Time: 12/25/20 16:28 Chief Complaint: 75 year old male with known history of lung cancer admitted with rectal bleed pt states he noticed blood in his stool. Pt is confused at times and is not the best historian states he has history of reflux. and never had any GI scopes before. no history of weight loss or loss of appetite. Recent admission with community acquired pneumonia. This time admission with severe anaemia pt tranfused blood, seen by GI for GI scopes tomorrow Am. Review of Systems Review of Systems: All systems reviewed & are unremarkable except as noted in HPI and below PMFSH Past Medical History Medical History Acute encephalopathy Acute on chronic blood loss anemia Acute renal failure Anemia CAD (coronary artery disease) Lung cancer Myocardial infarction Surgical History Surgical History History of coronary artery stent placement History of hip replacement Family History Family History Father Cancer Sibling Mental health problem Sibling Mental health problem Social History Social History Smoking packs per day: 1.5 Smoking cigarettes per day: 30.0 Years smoked: 45 Smoking pack-years: 67.50 Smoking status: Former smoker Tobacco type: cigarettes Alcohol intake: former Drinks per week: 12 Substance use: current Substance use type: other Other substance usage details: 16 morphine tablets/week Last use: 12/24/20 Gender identity (if verbalized by the patient): Male Spiritual care concerns: No Meds Home Medications and Allergies Home Medications Medication Instructions Recorded Confirmed Type albuterol sulfate 2 puff INHALATION QID 03/25/20 12/25/20 History carvedilol 12.5 mg PO BID 03/25/20 12/25/20 History naloxone 1 spray INTRANASAL Q2-3M PRN 03/25/20 12/25/20 History potassium chloride 40 meq PO BID 03/25/20 12/25/20 History carboxymethylcellulose sodium 1 drp EACH EYE QID PRN 12/25/20 12/25/20 History [Lubricant Eye Drops] food supplemt, lactose-reduced 2 ea PO DAILY 12/25/20 12/25/20 History [Ensure Plus] furosemide 20 mg PO DAILY 12/25/20 12/25/20 History heparin lock flush (porcine) 500 unit IV DAILY 12/25/20 12/25/20 History heparin lock flush (porcine) 500 unit IV PRN PRN 12/25/20 12/25/20 History [Heparin Lock] morphine 30 mg PO Q6H PRN 12/25/20 12/25/20 History olodaterol 2 inh INHALATION DAILY 12/25/20 12/25/20 History sodium chloride 0.9 % (flush) 10 ml IV DAILY 12/25/20 12/25/20 History Allergies Allergy/AdvReac Type Severity Reaction Status Date / Time gabapentin AdvReac Joint Pain Verified 12/25/20 11:15 pregabalin [From Lyrica] AdvReac Joint Pain Verified 12/25/20 11:15 ticagrelor [From Brilinta] AdvReac Muscle Pain Verified 12/25/20 11:15 Vital Signs Vital Signs - 24 hr 12/25/20 04:57 12/25/20 05:52 12/25/20 06:44 Temperature 36.2 C L Pulse Rate 87 86 81 Respiratory Rate 16 16 14 Blood Pressure 114/58 L 121/70 116/70 Pulse Oximetry 100 100 100 12/25/20 07:46 12/25/20 08:36 12/25/20 09:01 Temperature 36.7 C Pulse Rate 78 77 82 Respiratory Rate 18 21 H 14 Blood Pressure 102/61 123/64 135/59 L Pulse Oximetry 97 100 100 12/25/20 09:17 12/25/20 10:02 12/25/20 10:17 Temperature 36.6 C 36.6 C Pulse Rate 77 87 82 Respiratory Rate 14 18 17 Blood Pressure 129/55 L 119/68 125/65 Pulse Oximetry 100 99 98 12/25/20 11:05 12/25/20 11:07 12/25/20 11:50 Temperature 36.6 C 36.3 C L Pulse Rate 99 80 76 Respiratory Rate 16 22 H 16 Blood Pressure 151/75 H 133/66 144/66 H Pulse Oximetry 78 L 98 100 12/25/20 12:00 12/25/20 12:15 12/25/20 12:21 Temperature 35.8 C L Pulse Rate 78 76 Respiratory Rate 18 Blood Pressure 112/63 Puls
[2020-12-25] MEDS: CENTRAL LINE FLUSH 10 ML IV PUSH ×2 (16:37→21:10)
[2020-12-25] MEDS: SILVERGEL (ELTA) 45 ML 1 APPLIC TOPICAL (16:37)
[2020-12-25] MEDS: LACTATED RINGERS 1,000 ML 125 ML IV CONT (16:37)
[2020-12-25 17:39] LABS: Hematocrit 29.6 % (42.0-52.0); Hemoglobin 9.8 g/dL (14.0-18.0)
[2020-12-25] MEDS: BISACODYL 5 MG TABLET EC 20 MG PO (18:03)
[2020-12-25] MEDS: carvediloL 12.5 MG TABLET PO (18:03)
[2020-12-25] MEDS: polyethylene glycoL 3350 238 GM BOTTLE PO (18:04)
[2020-12-25] MEDS: POTASSIUM CHLORIDE 20 MEQ PACKET (FOR LIQUID) 40 MEQ PO (18:04)
[2020-12-25] MEDS: ALBUTEROL SULFATE (*SP) AEROSOL 1 PUFF 2 PUFF INHALATION (20:18)
[2020-12-26] VITALS (16 sets, daily range): BP systolic 95–138; BP diastolic 42–66; PULSE 66–86; RESP 18–22; TEMP 36.9–37; O2SAT 92–99; BMI 25.7
[2020-12-26] MEDS: LACTATED RINGERS 1,000 ML 125 ML IV CONT ×2 (01:00→14:02)
[2020-12-26 01:25] LABS: Hematocrit 26.4 % (42.0-52.0); Hemoglobin 8.8 g/dL (14.0-18.0)
[2020-12-26] MEDS: MAGNESIUM CITRATE 300 ML BTL 150 ML PO (05:29)
[2020-12-26 05:43] LABS: Hematocrit 23.9 % (42.0-52.0); Mean Corpuscular HGB Conc 33.5 g/dl (32-36); Mean Corpuscular Hemoglobin 29.2 pg (26-34); Mean Corpuscular Volume 87.2 fl (80-100); Mean Platelet Volume 9.1 fl (7.4-10.4); Platelet Count Result 142 k/mm3 (150-375); Red Blood Count 2.74 M/mm3 (4.6-6.20); Red Cell Distribution Width 14.6 % (11.5-14.5); White Blood Count 3.9 K/mm3 (4.5-10.0)
[2020-12-26] MEDS: CENTRAL LINE FLUSH 10 ML IV PUSH ×3 (05:47→20:42)
[2020-12-26 06:05] LABS: Anion Gap 6 mmol/L (8-16); Blood Urea Nitrogen 31 mg/dL (9-20); Calcium 7.8 mg/dL (8.4-10.2); Carbon Dioxide 25 mmol/L (22-30); Chloride 107 mmol/L (98-107); Estimated CRCL calculation 48 ml/min; Estimated Glomerular Filt Rate 54; Glucose 131 mg/dL (75-110); Potassium 2.8 mmol/L (3.4-5.0); Sodium 138 mmol/L (137-145)
[2020-12-26] MEDS: POTASSIUM CHLORIDE 20 MEQ PACKET (FOR LIQUID) 40 MEQ PO ×2 (09:31→17:30)
[2020-12-26] MEDS: FUROSEMIDE 20 MG TABLET PO (09:32)
[2020-12-26] MEDS: carvediloL 12.5 MG TABLET PO ×2 (09:32→17:30)
[2020-12-26] MEDS: PANTOPRAZOLE SODIUM IV 40 MG VIAL IV PUSH ×2 (09:33→20:41)
[2020-12-26] MEDS: ALBUTEROL SULFATE (*SP) AEROSOL 1 PUFF 2 PUFF INHALATION ×4 (09:38→17:30)
[2020-12-26] MEDS: SILVERGEL (ELTA) 45 ML 1 APPLIC TOPICAL (09:40)
[2020-12-26] MEDS: KCL 40 MEQ/0.9% SOD CHL 1,000 ML 100 ML IV CONT (11:23)
--- NOTE | 2020-12-26 11:46 | PCNSR ---
On 12/26/20, the student, Janett Ventura, provided care and completed [facility] documentation on this patient. I have reviewed the student's documentation and agree with the findings.
--- NOTE | 2020-12-26 12:06 | PM.IMPN ---
Progress Note: A&P Assessment and Plan (1) Acute encephalopathy: Code(s): G93.40 - Encephalopathy, unspecified Status: Acute Assessment and Plan: Continue to watch ? secondary to anemia (2) Acute renal failure: Code(s): N17.9 - Acute kidney failure, unspecified Status: Acute Assessment and Plan: creat is 1.3. (3) Acute on chronic blood loss anemia: Code(s): D62 - Acute posthemorrhagic anemia Status: Acute Assessment and Plan: Secondary to blood loss serial hb /hct and transfuse blood (4) GI bleed: Code(s): K92.2 - Gastrointestinal hemorrhage, unspecified Status: Acute Assessment and Plan: Seen by Gi awaiting scopes tomorrow add protonix iv, npo from [place] (5) Anemia: Qualifiers: Anemia type: unspecified type Qualified Code(s): D64.9 - Anemia, unspecified Code(s): D64.9 - Anemia, unspecified Status: Chronic Assessment and Plan: Acute on chronic anaemia (6) Acute hypokalemia: Code(s): E87.6 - Hypokalemia Status: Acute Assessment and Plan: pt is on a potassium rider, bmp ordered stat Subjective Date/time seen: 12/26/20 12:06 Interval history: 75 year old male with known history of lung cancer admitted with rectal bleed pt states he noticed blood in his stool. Pt is confused at times and is not the best historian states he has history of reflux. Pt going for scopes today once potassium is corrected. Review of Systems Review of Systems: All systems reviewed & are unremarkable except as noted in HPI and below Exam Const: General: well developed (Pale chronically ill appearing) Nutritional Appearance: well nourished HENMT: Head: normocephalic Eyes: General: appearance normal, both eyes and all related structures Pupils: Equal, round and reactive pupils present Neck: Neck: supple Chest: Chest palpation & inspection: normal inspection of the chest Resp: Effort & Inspection: normal respiratory effort Auscultation: clear to auscultation bilaterally Cardio: Jugular venous distension: no JVD Rhythm: regular rhythm Heart sounds: S1 normal heart sound present and S2 normal heart sound present GI: Inspection: normal to inspection Auscultation: normal bowel sounds Skin: General skin exam: normal color and dry skin Neuro: Cranial nerves: Yes CN's II-XII intact bilaterally and Yes Equal, round and reactive pupils present Cognition (Neuro): normal cognition Speech: normal speech Motor exam (neuro): 5/5 motor strength present throughout Extrem: General: normal to inspection Psych: Appearance: other (mild confusion poor historian ) Objective Data Vital Signs Vital Signs: Vital Signs - 24 hr 12/25/20 12:15 12/25/20 12:21 12/25/20 12:56 Temperature 35.8 C L Pulse Rate 76 Respiratory Rate 18 Blood Pressure 112/63 Pulse Oximetry 100 100 100 12/25/20 13:15 12/25/20 14:00 12/25/20 14:15 Temperature 36.3 C L 36.3 C L 36.3 C L Pulse Rate 79 78 78 Respiratory Rate 16 16 16 Blood Pressure 152/72 H 152/72 H 123/55 L Pulse Oximetry 99 100 100 12/25/20 15:15 12/25/20 15:45 12/25/20 16:00 Temperature 36.3 C L 36.7 C Pulse Rate 78 76 89 Respiratory Rate 18 14 Blood Pressure 147/78 H 134/56 L Pulse Oximetry 100 100 12/25/20 18:03 12/25/20 20:00 12/25/20 20:19 Temperature Pulse Rate 78 69 80 Respiratory Rate 20 20 Blood Pressure Pulse Oximetry 96 12/25/20 22:00 12/26/20 00:00 12/26/20 04:00 Temperature 36.6 C Pulse Rate 73 70 70 Respiratory Rate 20 Blood Pressure 128/49 L Pulse Oximetry 96 12/26/20 06:00 12/26/20 09:25 12/26/20 09:32 Temperature 37.0 C Pulse Rate 78 72 Respiratory Rate 20 Blood Pressure 138/56 L Pulse Oximetry 99 92 Intake/Output Intake/Output: Intake & Output 12/23/20 12/24/20 12/25/20 12/26/20 23:59 23:59 23:59 23:59 Intake Total 2750 1900 Output Total 200 Balance
[2020-12-26 13:26] LABS: Anion Gap 4 mmol/L (8-16); Blood Urea Nitrogen 22 mg/dL (9-20); Calcium 7.8 mg/dL (8.4-10.2); Carbon Dioxide 25 mmol/L (22-30); Chloride 107 mmol/L (98-107); Estimated CRCL calculation 57 ml/min; Estimated Glomerular Filt Rate > 60; Glucose 102 mg/dL (75-110); Potassium 2.9 mmol/L (3.4-5.0); Sodium 136 mmol/L (137-145)
--- NOTE | 2020-12-26 13:52 | PC.NURSE ---
to GI lab per bunny
--- NOTE | 2020-12-26 14:31 | WPDANESEPPF ---
Anes - Initial Pre Proc Eval Procedure: Operation Date: 12/26/20 14:30 Proposed Procedures p Esophagogastroduodenoscopy & Colonoscopy - David Jeronimo MD Date/Time: 12/26/20 14:31 Surgeon: Yamilet Draper DO Pre Op Diagnosis: GI bleed/ANA Patient Data Age: 75 Gender: M Height: 6 ft Weight: 86.1 kg Last Vital Signs Temp 98.4 F 12/26/20 14:04 Pulse 66 12/26/20 14:04 Resp 18 12/26/20 14:04 BP 122/47 L 12/26/20 14:04 Pulse Ox 96 12/26/20 14:04 Allergies Allergy/AdvReac Type Severity Reaction Status Date / Time gabapentin AdvReac Joint Pain Verified 12/25/20 11:15 pregabalin [From Lyrica] AdvReac Joint Pain Verified 12/25/20 11:15 ticagrelor [From Brilinta] AdvReac Muscle Pain Verified 12/25/20 11:15 Home Medications Medication Instructions Recorded Confirmed Type albuterol sulfate 2 puff INHALATION QID 03/25/20 12/25/20 History carvedilol 12.5 mg PO BID 03/25/20 12/25/20 History naloxone 1 spray INTRANASAL Q2-3M PRN 03/25/20 12/25/20 History potassium chloride 40 meq PO BID 03/25/20 12/25/20 History carboxymethylcellulose sodium 1 drp EACH EYE QID PRN 12/25/20 12/25/20 History [Lubricant Eye Drops] food supplemt, lactose-reduced 2 ea PO DAILY 12/25/20 12/25/20 History [Ensure Plus] furosemide 20 mg PO DAILY 12/25/20 12/25/20 History heparin lock flush (porcine) 500 unit IV DAILY 12/25/20 12/25/20 History heparin lock flush (porcine) 500 unit IV PRN PRN 12/25/20 12/25/20 History [Heparin Lock] morphine 30 mg PO Q6H PRN 12/25/20 12/25/20 History olodaterol 2 inh INHALATION DAILY 12/25/20 12/25/20 History sodium chloride 0.9 % (flush) 10 ml IV DAILY 12/25/20 12/25/20 History Laboratory Tests 12/25/20 12/25/20 12/26/20 05:15 17:31 01:12 WBC RBC Hgb 9.8 g/dL L g/dL 8.8 g/dL L g/dL (14.0-18.0) (14.0-18.0) Hct 29.6 % L % 26.4 % L % (42.0-52.0) (42.0-52.0) MCV MCH MCHC RDW Plt Count MPV Sodium Potassium Chloride Carbon Dioxide Anion Gap BUN Creatinine Estim Creat Clear Calc Estimated GFR Glucose Calcium Crossmatch See Detail 12/26/20 12/26/20 12/26/20 05:34 05:34 12:53 WBC 3.9 K/mm3 L K/mm3 (4.5-10.0) RBC 2.74 M/mm3 L M/mm3 (4.6-6.20) Hgb 8.0 g/dL L g/dL (14.0-18.0) Hct 23.9 % L % (42.0-52.0) MCV 87.2 fl fl (80-100) MCH 29.2 pg pg (26-34) MCHC 33.5 g/dl g/dl (32-36) RDW 14.6 % H % (11.5-14.5) Plt Count 142 k/mm3 L k/mm3 (150-375) MPV 9.1 fl fl (7.4-10.4) Sodium 138 mmol/L mmol/L (137-145) Potassium 2.8 mmol/L L* mmol/L Cancelled (3.4-5.0) Chloride 107 mmol/L mmol/L (98-107) Carbon Dioxide 25 mmol/L mmol/L (22-30) Anion Gap 6 mmol/L L mmol/L (8-16) BUN 31 mg/dL H D mg/dL (9-20) Creatinine 1.30 mg/dL mg/dL (0.7-1.3) Estim Creat Clear Calc 48 ml/min ml/min Estimated GFR 54 L (59 - ) Glucose 131 mg/dL H mg/dL (75-110) Calcium 7.8 mg/dL L mg/dL (8.4-10.2) Crossmatch 12/26/20 12:53 WBC RBC Hgb Hct MCV MCH MCHC RDW Plt Count MPV Sodium 136 mmol/L L mmol/L (137-145) Potassium 2.9 mmol/L L mmol/L (3.4-5.0) Chloride 107 mmol/L mmol/L (98-107) Carbon Dioxide 25 mmol/L mmol/L (22-30) Anion Gap 4 mmol/L L mmol/L (8-16) BUN 22 mg/dL H mg/dL (9-20) Creatinine 1.10 mg/dL mg/dL (0.7-1.3) Estim Creat Clear Calc 57 ml/min ml/min Estimated GFR > 60 (59 - ) Glucose 102 mg/dL mg/dL (75-110) Calcium 7.8 mg/dL L mg/dL
[2020-12-26] MEDS: LACTATED RINGERS 1,000 ML 150 ML IV CONT (15:53)
--- NOTE | 2020-12-26 16:33 | PC.NURSE ---
patient returning from GI lab to room
[2020-12-26] MEDS: SUCRALFATE SUSP 100 MG/ML 10 ML UDC 1000 MG PO ×2 (17:30→20:41)
--- NOTE | 2020-12-26 21:35 | PC.NURSE ---
At 21:35 Nurse Allie saw Asystole on the tele monitor, she went to check on Mr. Cespedes, he had pulled off tele monitor completely as well as pulled out his portacath. He has no IV access at this time, and is refusing tele due to it feeling scratchy ... will call MD now. -AEW RN
--- NOTE | 2020-12-26 21:41 | PC.NURSE ---
Spoke to Dr. Little @ 21:40 to inform him that pt took out port-a-cath and is refusing tele monitor. He said to document pt refusal. -AEW RN
--- NOTE | 2020-12-26 22:02 | PC.NURSE ---
Spoke to Valorie Soares RN (charge), and she stated to leave pt alone and not try to convince him to let us put tele on, (he is running normal sinus rhythm with regular HR), pt is very frustrated and uncomfortable, will check in on him in a few minutes to provide care and promote comfort. -AEW RN
[2020-12-27] MEDS: KCL 40 MEQ/0.9% SOD CHL 1,000 ML 100 ML IV CONT ×2 (04:24→08:07)
--- NOTE | 2020-12-27 04:25 | PC.NURSE ---
The patient allowed Valorie Soares (key sander) to replace port-a-cath access. Kcl fluids restarted. -AEW RN
[2020-12-27] MEDS: SUCRALFATE SUSP 100 MG/ML 10 ML UDC 1000 MG PO ×2 (05:41→11:41)
[2020-12-27] MEDS: CENTRAL LINE FLUSH 10 ML IV PUSH ×2 (05:41→14:02)
[2020-12-27 05:42] VITALS: BP 134/56; PULSE 68; RESP 20; TEMP 36.6; O2SAT 100
[2020-12-27 06:02] LABS: Hematocrit 22.4 % (42.0-52.0); Hemoglobin 7.5 g/dL (14.0-18.0); Mean Corpuscular HGB Conc 33.5 g/dl (32-36); Mean Corpuscular Hemoglobin 29.2 pg (26-34); Mean Corpuscular Volume 87.2 fl (80-100); Mean Platelet Volume 8.2 fl (7.4-10.4); Platelet Count Result 131 k/mm3 (150-375); Red Blood Count 2.57 M/mm3 (4.6-6.20); Red Cell Distribution Width 14.5 % (11.5-14.5); White Blood Count 4.8 K/mm3 (4.5-10.0)
[2020-12-27 06:37] LABS: Anion Gap 5 mmol/L (8-16); Blood Urea Nitrogen 11 mg/dL (9-20); Calcium 7.7 mg/dL (8.4-10.2); Carbon Dioxide 24 mmol/L (22-30); Chloride 110 mmol/L (98-107); Estimated CRCL calculation 68 ml/min; Estimated Glomerular Filt Rate > 60; Glucose 102 mg/dL (75-110); Potassium 4.1 mmol/L (3.4-5.0); Sodium 139 mmol/L (137-145)
--- NOTE | 2020-12-27 07:32 | P.CDI_ITS ---
CDI Query Clarification Request -Acute encephalopathy has been documented Please further specify type of encephalopathy: * Metabolic * Toxic * Hepatic * Hypertensive * Other * Unable to determine
--- NOTE | 2020-12-27 07:32 | WPDCDIQUERY2 ---
CDI Query Clarification Request -Acute encephalopathy has been documented Please further specify type of encephalopathy: Metabolic Toxic Hepatic Hypertensive Other Unable to determine
[2020-12-27] MEDS: POTASSIUM CHLORIDE 20 MEQ PACKET (FOR LIQUID) 40 MEQ PO (08:06)
[2020-12-27] MEDS: PANTOPRAZOLE SODIUM IV 40 MG VIAL IV PUSH (08:09)
[2020-12-27] MEDS: HEPARIN SOD FLUSH 500 UNITS/5 ML SYRINGE IV PUSH ×2 (08:09→14:55)
[2020-12-27] MEDS: ALBUTEROL SULFATE (*SP) AEROSOL 1 PUFF 2 PUFF INHALATION ×2 (08:09→11:41)
[2020-12-27 08:17] VITALS: PULSE 76
[2020-12-27] MEDS: SILVERGEL (ELTA) 45 ML 1 APPLIC TOPICAL (08:17)
[2020-12-27] MEDS: FUROSEMIDE 20 MG TABLET PO (08:17)
[2020-12-27] MEDS: carvediloL 12.5 MG TABLET PO (08:17)
[2020-12-27 08:30] VITALS: PULSE 72
[2020-12-27 11:44] VITALS: O2SAT 97
[2020-12-27 12:00] VITALS: PULSE 68
--- NOTE | 2020-12-27 13:46 | PM.DS ---
DS: Admitting Diagnosis Admitting Diagnosis Admitting Diagnosis: Rectal bleed DS: Discharge Diagnosis Discharge Diagnosis (1) Acute encephalopathy: Code(s): G93.40 - Encephalopathy, unspecified Status: Acute Assessment and Plan: Continue to watch ? secondary to anemia (2) Acute renal failure: Code(s): N17.9 - Acute kidney failure, unspecified Status: Acute Assessment and Plan: creat is 1.3. (3) Acute on chronic blood loss anemia: Code(s): D62 - Acute posthemorrhagic anemia Status: Acute Assessment and Plan: Secondary to blood loss serial hb /hct and transfuse blood (4) GI bleed: Code(s): K92.2 - Gastrointestinal hemorrhage, unspecified Status: Acute Assessment and Plan: Seen by Gi awaiting scopes tomorrow add protonix iv, npo from [place] (5) Anemia: Qualifiers: Anemia type: unspecified type Qualified Code(s): D64.9 - Anemia, unspecified Code(s): D64.9 - Anemia, unspecified Status: Chronic Assessment and Plan: Acute on chronic anaemia (6) Acute hypokalemia: Code(s): E87.6 - Hypokalemia Status: Resolved Assessment and Plan: Resolved after potassium supplementation DS: Summary Hospital Course Hospital Course: 75 year old male with known history of lung cancer admitted with rectal bleed pt states he noticed blood in his stool. Pt is confused at times and is not the best historian states he has history of reflux. and never had any GI scopes before. no history of weight loss or loss of appetite. Recent admission with community acquired pneumonia. This time admission with severe anaemia pt transfused blood, seen by GI for GI scopes tomorrow Am. Pt has lung cancer sp R upper and lower partial lobectomy with previous chemotherapy. EGD showed- hiatal hernia, reflux esophagitis and colonoscopy showed melanosis coli. Pt discharged with oral PPI Time Spent with Patient Time attestation: Total time spent providing and/or coordinating discharge services:40 minutes on day of discharge Exam Const: General: well developed (Pale chronically ill appearing) Nutritional Appearance: well nourished HENMT: Head: normocephalic Eyes: General: appearance normal, both eyes and all related structures Pupils: Equal, round and reactive pupils present Neck: Neck: supple Chest: Chest palpation & inspection: normal inspection of the chest Resp: Effort & Inspection: normal respiratory effort Auscultation: clear to auscultation bilaterally Cardio: Jugular venous distension: no JVD Rhythm: regular rhythm Heart sounds: S1 normal heart sound present and S2 normal heart sound present GI: Inspection: normal to inspection Auscultation: normal bowel sounds Skin: General skin exam: normal color and dry skin Neuro: Cranial nerves: Yes CN's II-XII intact bilaterally and Yes Equal, round and reactive pupils present Cognition (Neuro): normal cognition Speech: normal speech Motor exam (neuro): 5/5 motor strength present throughout Extrem: General: normal to inspection Psych: Appearance: other (mild confusion poor historian ) DS: Data Data Completed and Pending Pending studies at discharge: Pending at discharge 12/26/20 15:22 Surgical [PTH] Routine Labs on day of discharge: Labs from last 24 hours 12/27/20 12/27/20 12/25/20 05:53 05:53 05:15 WBC 4.8 RBC 2.57 L Hgb 7.5 L Hct 22.4 L MCV 87.2 MCH 29.2 MCHC 33.5 RDW 14.5 Plt Count 131 L MPV 8.2 Sodium 139 Potassium 4.1 Chloride 110 H Carbon Dioxide 24 Anion Gap 5 L BUN 11 D Creatinine 0.90 Estim Creat Clear Calc 68 Estimated GFR > 60 Glucose 102 Calcium 7.7 L Crossmatch See Detail Discharge Plan Discharge Attending physician on discharge: Abby Cartwright Consulting providers: David Jeronimo ; Jose Erickson ; Calvin Lewis
[2020-12-27 14:00] VITALS: BP 116/47; PULSE 68; RESP 18; TEMP 36.4; O2SAT 94
== END 2020-12-27 16:40 | disposition home health service (06) | DRG 378 ==
LOC: ANHED 07:15 → ANH3MEDSUR 15:31
PROVIDERS: Internal Medicine Gastroenterology; Admitting Provider Internal Medicine; Emergency Provider Emergency Medicine; Visit Provider Family Medicine
PROC: 0DJ08ZZ Inspection of Upper Intestinal Tract, Via Natural or Artificial Opening Endoscopic (ICD-10-PCS; CPT 43235; principal; 2020-12-26 14:30)
DX: K92.2 Gastrointestinal hemorrhage, unspecified (principal); D62 Acute posthemorrhagic anemia; N17.9 Acute kidney failure, unspecified; G93.49 Other encephalopathy; K63.89 Other specified diseases of intestine; K21.00 Gastro-esophageal reflux disease with esophagitis, without bleeding; K44.9 Diaphragmatic hernia without obstruction or gangrene; E87.6 Hypokalemia; I25.10 Atherosclerotic heart disease of native coronary artery without angina pectoris; D63.8 Anemia in other chronic diseases classified elsewhere; Z85.118 Personal history of other malignant neoplasm of bronchus and lung; Z79.02 Long term (current) use of antithrombotics/antiplatelets; Z79.82 Long term (current) use of aspirin; I25.2 Old myocardial infarction; Z95.5 Presence of coronary angioplasty implant and graft; Z87.891 Personal history of nicotine dependence
CPT/HCPCS: 36415; 36430; 51701; 71045; 80048; 80053; 81003; 85014; 85018; 85025; 85027; 85610; 85730; 86850; 86900; 86901; 86923; 88305; 88342; 93005; 94640; 96361; 96374; 96375; 99285; A9270; C9113; J2405; J2704; J3480; J7030; J7120; P9016

== ENCOUNTER 2021-01-19 13:40 | Emergency (ER) | payer OTHER, SELFPAY ==
[2021-01-19] VITALS (11 sets, daily range): BP systolic 94–117; BP diastolic 44–88; PULSE 83–100; RESP 14–22; TEMP 36.6; O2SAT 93–97
--- NOTE | ~2021-01-19 | XR_ITS ---
EXAMINATION: XR chest 1V portable DATE: 01/19/2021 14:43 INDICATION: Shortness of breath. TECHNIQUE: A single frontal view of the chest was obtained. COMPARISON: Chest single view 12/25/2020, chest CT 11/24/2018 FINDINGS: There is volume loss of right hemithorax with surgical clips, likely changes of right upper lobectomy. Calcified left lung nodules are consistent with old granulomatous disease. There is mild atelectasis in the lower lung zones. No pleural effusion or pneumothorax. The heart size is normal. T here is a right internal jugular port with tip in superior vena cava. There is a stent graft in abdom inal aorta. IMPRESSION: 1. Mild atelectasis in the lower lung zones. 2. Right upper lobectomy. Reviewed, dictated and finalized at location A.
--- NOTE | 2021-01-19 13:56 | ECG_ITS ---
Measurements Intervals [place] Rate: 96 P: 109 CT: 190 QRS: 15 QRSD: 93 T: 83 QT: 355 QTc: 449 Interpretive Statements SINUS RHYTHM ST-T WAVE ABNORMALITY IN ANTEROLATERAL LEADS- CONSIDER ISCHEMIA BASELINE ARTIFACT- I, II, III, AVR, AVL, AVF, V1-V6 ABNORMAL ECG Electronically Signed On 01-19-2021 17:16:52 CDT by Calvin Lewis D.O.
[2021-01-19] MEDS: SODIUM CHLORIDE 0.9% IV 1,000 ML 1000 ML ×2 (14:15→15:23)
[2021-01-19 14:23] LABS: Alveolar/Arterial O2 Gradient 66.1 mmHg; Base Excess ABG 0.7 mEq/l (+/-2.0); Fractional Inspired Oxygen 21 %; HCO3 ABG 22.9 mEq/l (22.0-26.0); Oxygen Content ABG 10.9 %vol (16.0-22.0); Oxygen Saturation ABG 90.2 % (95.0-100.0); PCO2 ABG 27.8 mmHg (35.0-45.0); PO2 ABG 50.3 mmHg (80.0-100.0)
[2021-01-19 14:24] LABS: Device ROOM AIR; Site Drawn LEFT BRACHIAL; pH ABG 7.533 (7.350-7.450)
[2021-01-19 15:39] LABS: Basophils Absolute Auto 0.1 K/mm3 (0.0-0.1); Basophils Percent Auto 0.5 % (0.2-1.2); Eosinophils Percent Auto 0.3 % (0-4.4); Hematocrit 26.1 % (42.0-52.0); Hemoglobin 8.5 g/dL (14.0-18.0); Immature Granulocyte Absolute 0.17 K/mm3 (0.00-0.031); Immature Granulocyte Percent A 1.4 % (0-0.5); Lymphocytes Absolute Auto 1.15 K/mm3 (0.9-3.2); Lymphocytes Percent Auto 9.8 % (18.3-44.2); Mean Corpuscular HGB Conc 32.6 g/dl (32-36); Mean Corpuscular Hemoglobin 28.1 pg (26-34); Mean Corpuscular Volume 86.4 fl (80-100); Mean Platelet Volume 9.8 fl (7.4-10.4); Monocytes Absolute Auto 0.7 K/mm3 (0.1-0.6); Monocytes Percent Auto 5.8 % (2.6-8.5); Neutrophils Absolute Auto 9.7 K/mm3 (1.3-6.7); Neutrophils Percent Auto 82.2 % (45.5-73.1); Platelet Count Result 356 k/mm3 (150-375); Red Blood Count 3.02 M/mm3 (4.6-6.20); Red Cell Distribution Width 15.8 % (11.5-14.5); White Blood Count 11.8 K/mm3 (4.5-10.0)
[2021-01-19 15:44] LABS: Add Urine Microscopic? YES; Appearance Urine Cloudy (Clear); Bacteria Urine 4+ /hpf; Bilirubin Urine Negative (Negative); Blood Urine 1+ (Negative); Color Urine Amber (Yellow); Glucose Urine UA Negative (Negative); Ketones Urine Negative (Negative); Leukocyte Esterase Ur 3+ LEU/UL (Negative); Mucus Urine Rare /lpf; Nitrate Urine Negative (Negative); Protein Urine 2+ mg/dL (Negative); RBC Urine 0-2 /hpf (0-2); Specific Grav Ur 1.012 (1.001-1.035); Squamous Epithelial Cell Urine Rare /hpf (Few); Urobilinogen Urine Negative mg/dL (<2.0); WBC Clumps Urine Present /HPF; WBC Urine >75 /hpf
[2021-01-19 15:50] LABS: INR 1.1
[2021-01-19 15:51] LABS: Alanine Aminotransferase 11 U/L (4-50); Albumin Level 3.5 g/dL (3.5-5.1); Alkaline Phosphatase 154 U/L (38-126); Anion Gap 13 mmol/L (8-16); Aspartate Amino Transferase 28 U/L (17-59); Bilirubin,Total 0.7 mg/dL (0.2-1.3); Blood Urea Nitrogen 27 mg/dL (9-20); Calcium 9.2 mg/dL (8.4-10.2); Carbon Dioxide 26 mmol/L (22-30); Chloride 96 mmol/L (98-107); Estimated CRCL calculation 41 ml/min; Estimated Glomerular Filt Rate 49; Glucose 138 mg/dL (75-110); Sodium 135 mmol/L (137-145)
[2021-01-19 16:07] LABS: NT Pro B Type Natriuretic Pept 897 PG/ML (5-100); Troponin I < 0.012 ng/mL (0.000-0.034)
--- NOTE | 2021-01-19 16:32 | ED.WEAKNESS ---
HPI - Weakness General Chief complaint: Weakness Stated complaint: unspecified Time Seen by Provider: 01/19/21 13:55 Source: patient and family Mode of arrival: EMS Limitations: no limitations History of Present Illness HPI Narrative: 76-year-old with a history of CAD, COPD, s/p lobectomy on the right and left secondary to lung cancer presently under remission last chemo was 6 months ago. History of right femur fracture was brought in from home with marked weakness unable to ambulate when trying to get up patient had a syncopal episode and family called 911 upon their arrival patient was found to be hypotensive yasmeen complaints of shortness of breath. As per the family patient has been extremely weak for past 2 days unable to get out of the bed on the recliner. There is no history of fever or unusual cough . Family reports that he has home health nurse comes and checks on him twice a day for decub ulcers patient's primary care is mostly at [facility] and prefers to be admitted [place] . MD Complaint: generalized weakness Onset (ago): day(s) (2) Duration: constant Relieving factors: none Exacerbating factors: none Related Data Home Medications Medication Instructions Recorded Confirmed albuterol sulfate 2 puff INHALATION QID 03/25/20 12/25/20 carvedilol 12.5 mg PO BID 03/25/20 12/25/20 naloxone 1 spray INTRANASAL Q2-3M PRN 03/25/20 12/25/20 potassium chloride 40 meq PO BID 03/25/20 12/25/20 Lubricant Eye Drops 1 drp EACH EYE QID PRN 12/25/20 12/25/20 food supplemt, lactose-reduced 2 ea PO DAILY 12/25/20 12/25/20 furosemide 20 mg PO DAILY 12/25/20 12/25/20 heparin lock flush (porcine) 500 unit IV DAILY 12/25/20 12/25/20 heparin lock flush (porcine) 500 unit IV PRN PRN 12/25/20 12/25/20 morphine 30 mg PO Q6H PRN 12/25/20 12/25/20 olodaterol 2 inh INHALATION DAILY 12/25/20 12/25/20 sodium chloride 0.9 % (flush) 10 ml IV DAILY 12/25/20 12/25/20 Allergies Allergy/AdvReac Type Severity Reaction Status Date / Time gabapentin AdvReac Joint Pain Verified 12/25/20 11:15 pregabalin [From Lyrica] AdvReac Joint Pain Verified 12/25/20 11:15 ticagrelor [From Brilinta] AdvReac Muscle Pain Verified 12/25/20 11:15 Review of Systems Review of Systems: All systems reviewed & are unremarkable except as noted in HPI and below Constitutional: Constitutional: Reports no additional constitutional complaints Eyes: Eyes: Reports no additional eye complaints ENT: Reports system reviewed and no additional complaints, except as documented Cardiovascular: Cardiovascular: Reports no additional cardiovascular complaints Respiratory: Respiratory: Reports as per HPI and Reports no additional respiratory complaints Gastrointestinal: Gastrointestinal: Reports no additional gastrointestinal complaints Musculoskeletal: Musculoskeletal: Reports as per HPI Integumentary/Breasts: Skin/Breast: Reports as per HPI Neurologic: Reports system reviewed and no additional complaints, except as documented PMFSH Past Medical History Medical History Acute encephalopathy Acute on chronic blood loss anemia Acute renal failure Anemia CAD (coronary artery disease) Lung cancer Myocardial infarction Surgical History Surgical History History of coronary artery stent placement History of hip replacement Family History Family History Father Cancer Sibling Mental health problem Sibling Mental health problem Social History Social History Smoking packs per day: 1.5 Smoking cigarettes per day: 30.0 Years smoked: 45 Smoking pack-years: 67.50 Smoking status: Former smoker Tobacco type: cigarettes Alcohol intake: former Drinks per week: 12 Substance use: current Substance use type: other Other substance usage details: 16 morphine tabl
[2021-01-19 16:44] LABS: Lactic Acid Reflex 0.9 mmol/L (0.7-2.1)
[2021-01-19] MEDS: POTASSIUM CHLORIDE 20 MEQ PACKET (FOR LIQUID) 40 MEQ PO (16:44)
--- NOTE | 2021-01-19 20:54 | PC.NURSE ---
Report given to receiving nurse, Sharda at [place]. Pt to be admitted to room 253 bed 2.
--- NOTE | 2021-01-19 21:23 | PC.NURSE ---
Called [facility] to transport patient to [place], ETA 0000. TRIP #[id number]
[2021-01-20 19:28] LABS: SARS-CoV-2 RNA PCR Positive
== END 2021-01-20 04:09 ==
PROVIDERS: Emergency Provider Family Medicine
DX: U07.1 COVID-19 (principal); D64.9 Anemia, unspecified; L89.154 Pressure ulcer of sacral region, stage 4; E87.6 Hypokalemia; N39.0 Urinary tract infection, site not specified; I95.9 Hypotension, unspecified; I25.10 Atherosclerotic heart disease of native coronary artery without angina pectoris; Z90.2 Acquired absence of lung [part of]; Z85.118 Personal history of other malignant neoplasm of bronchus and lung; Z92.21 Personal history of antineoplastic chemotherapy; I25.2 Old myocardial infarction; Z95.5 Presence of coronary angioplasty implant and graft; R94.31 Abnormal electrocardiogram [ECG] [EKG]; Z87.891 Personal history of nicotine dependence; R06.02 Shortness of breath
CPT/HCPCS: 36415; 36600; 51701; 71045; 80053; 81001; 82805; 83605; 83880; 84484; 85025; 85610; 87040; 87077; 87086; 87088; 87186; 93005; 96361; 96365; 99285; A9270; C9803; J0696; J7030; U0003; U0005